=== PATIENT | male | born 1955 | race Caucasian/White ===

== ENCOUNTER → 2016-12-05 | Outpatient (CLI) | payer OTHER ==
[~2016-12-05] VITALS: Ht 182.9 cm; Wt 65.8 kg
[~2016-12-05] MED LIST: LIDOCAINE 2% INJ 100 MG/5 ML SDV (FOR ANES.) As Ordered ONE; NS 1,000 ML IV ONE; PROPOFOL 200 MG/20 ML VIAL As Ordered ONE
--- NOTE | 2016-12-05 12:32 | ROOR ---
Patient Name: Reji Cesar Procedure Date: 12/05/2016 12:08 PM Date of : 1955 Age: 61 Room: [facility] Gender: Male Note Status: Finalized Procedure: Colonoscopy Indications: Screening for colorectal malignant neoplasm Providers: Adilson RUSSO MD Referring MD: Brian ACOSTA MD Requesting Provider: Medicines: Monitored Anesthesia Care Complications: No immediate complications. Procedure: Pre-Anesthesia Assessment: - The heart rate, respiratory rate, oxygen saturations, blood pressure, adequacy of pulmonary ventilation, and response to care were monitored throughout the procedure. The Colonoscope was introduced through the anus and advanced to 3 cm into the ileum. The colonoscopy was performed without difficulty. The patient tolerated the procedure well. The quality of the bowel preparation was good. Findings: The perianal and digital rectal examinations were normal. A 6 mm polyp was found in the distal sigmoid colon. The polyp was sessile. The polyp was removed with a cold snare. Resection and retrieval were complete. Multiple medium-mouthed diverticula were found in the sigmoid colon. There was evidence of diverticular spasm. Internal hemorrhoids were found during retroflexion. The hemorrhoids were large. The exam was otherwise without abnormality on direct and retroflexion views. Impression: - One 6 mm polyp in the distal sigmoid colon, removed with a cold snare. Resected and retrieved. - Diverticulosis in the sigmoid colon. There was evidence of diverticular spasm. - Large Internal hemorrhoids. - The Colon examination was otherwise normal on direct and retroflexion views. Recommendation: - Repeat colonoscopy in 3 years for surveillance. Adilson Russo MD Adilson RUSSO MD 12/05/2016 12:32:37 PM This report has been signed electronically. Number of Addenda: 0 Note Initiated On: 12/05/2016 12:08 PM Estimated Blood Loss: Estimated blood loss: none.
[2016-12-05 12:55] VITALS: BP 137/71
== END ==
LOC: M OPP 11:16
PROVIDERS: ATTEND Internal Medicine Gastroenterology
DX: Z12.11 Encounter for screening for malignant neoplasm of colon (principal); D12.5 Benign neoplasm of sigmoid colon; K64.8 Other hemorrhoids; K57.30 Diverticulosis of large intestine without perforation or abscess without bleeding; Z79.899 Other long term (current) drug therapy

== ENCOUNTER → 2017-05-29 | Outpatient (REF) | payer OTHER, MEDICAID ==
[2017-05-29 13:06] LABS: BASO # 0.1 10^3/uL (0.0-0.2); BASO % 1.4 % (0.0-1.0); EOS # 0.4 10^3/uL (0.0-0.50); EOS % 5.7 % (0.0-3.0); IMMATURE GRANULOCYTE % 0.3 % (0-0); LYMPH # 1.3 10^3/uL (1.5-4.5); LYMPH % 19.9 % (24.0-44.0); MEAN CORPUSCULAR HEMOGLOBIN 31.4 pg (27.0-33.0); MEAN CORPUSCULAR HGB CONC 34.2 g/dl (32.0-36.5); MEAN CORPUSCULAR VOLUME 91.9 fl (80.0-96.0); MONO # 0.9 10^3/uL (0.0-0.8); MONO % 13.1 % (0.0-5.0); NEUTROPHILS % 59.6 % (36.0-66.0); PLATELET COUNT, AUTOMATED 116 10^3/uL (150-450); RED CELL DISTRIBUTION WIDTH 13.5 % (11.5-14.5); WHITE BLOOD COUNT 6.6 10^3/uL (4.0-10.0)
[2017-05-29 13:23] LABS: ALBUMIN 3.4 GM/DL (3.2-5.2); ALBUMIN/GLOBULIN RATIO 0.77 (1.00-1.93); ALKALINE PHOSPHATASE 144 U/L (45-117); ALT/SGPT 24 U/L (12-78); ANION GAP 8 MEQ/L (8-16); AST/SGOT 51 U/L (7-37); BILIRUBIN,TOTAL 0.9 MG/DL (0.2-1.0); BLOOD UREA NITROGEN 8 MG/DL (7-18); CARBON DIOXIDE LEVEL 27 MEQ/L (21-32); CHLORIDE LEVEL 104 MEQ/L (98-107); CHOLESTEROL LEVEL 253 MG/DL (<200); CREATININE FOR GFR 0.85 MG/DL (0.70-1.30); GLOMERULAR FILTRATION RATE > 60.0 (>49); GLUCOSE, FASTING 93 MG/DL (80-110); SODIUM LEVEL 139 MEQ/L (136-145); TOTAL PROTEIN 7.8 GM/DL (6.4-8.2); TRIGLYCERIDES LEVEL 121 MG/DL (<150)
== END ==
LOC: M LAB REF 12:39
PROVIDERS: ATTEND Family Medicine Addiction Medicine
DX: E78.5 Hyperlipidemia, unspecified (principal)

== ENCOUNTER → 2017-06-14 | Outpatient (REF) | payer OTHER, MEDICAID ==
[2017-06-14 18:15] LABS: BASO # 0.1 10^3/uL (0.0-0.2); BASO % 1.1 % (0.0-1.0); EOS # 0.2 10^3/uL (0.0-0.50); IMMATURE GRANULOCYTE % 0.3 % (0-0); LYMPH # 1.4 10^3/uL (1.5-4.5); LYMPH % 14.5 % (24.0-44.0); MEAN CORPUSCULAR HEMOGLOBIN 31.7 pg (27.0-33.0); MEAN CORPUSCULAR HGB CONC 34.4 g/dl (32.0-36.5); MEAN CORPUSCULAR VOLUME 91.9 fl (80.0-96.0); MONO # 1.3 10^3/uL (0.0-0.8); MONO % 13.8 % (0.0-5.0); NEUTROPHILS # 6.5 10^3/uL (1.8-7.7); NEUTROPHILS % 68.3 % (36.0-66.0); PLATELET COUNT, AUTOMATED 145 10^3/uL (150-450); RED CELL DISTRIBUTION WIDTH 13.6 % (11.5-14.5); WHITE BLOOD COUNT 9.5 10^3/uL (4.0-10.0)
== END ==
LOC: M LAB REF 17:27
PROVIDERS: ATTEND Family Medicine Addiction Medicine
DX: D69.49 Other primary thrombocytopenia (principal)

== ENCOUNTER 2018-02-28 12:40 | Outpatient (RCR) | payer OTHER, MEDICAID | END 2018-03-08 | LOC: M PT 12:40 | DX: M54.42 Lumbago with sciatica, left side (principal); Z51.89 Encounter for other specified aftercare | CPT/HCPCS: 97140 ==

== ENCOUNTER 2018-03-13 08:21 | Outpatient (RCR) | payer OTHER | END 2018-04-07 | LOC: M PT 08:21 | DX: M54.42 Lumbago with sciatica, left side (principal) | CPT/HCPCS: 97010 ==

== ENCOUNTER → 2018-12-27 | Outpatient (CLI) | payer OTHER ==
--- NOTE | 2018-12-27 09:58 | REP ---
Chest x-ray: Two views. History: Cough. Comparison study: January 26, 2015. Findings: The lungs are symmetrically aerated and free of infiltrate. Pleural angles are sharp. Heart size is normal. There is mild stable wedging one of the mid-thoracic vertebrae unchanged. The aorta is somewhat tortuous. Very vasculature is not increased. Impression: No active disease. Electronically Signed by Dhruv Odonnell MD 12/27/2018 09:49 A
== END ==
LOC: M RAD 08:36
PROVIDERS: ATTEND Family Medicine Addiction Medicine
DX: R05 Cough (principal)

== ENCOUNTER → 2019-03-19 | Outpatient (REF) | payer OTHER ==
[2019-03-19 13:14] LABS: BASO # 0.1 10^3/uL (0.0-0.2); BASO % 1.6 % (0.0-1.0); EOS # 0.1 10^3/uL (0.0-0.5); EOS % 2.2 % (0.0-3.0); HEMATOCRIT 43.8 % (42.0-52.0); HEMOGLOBIN 14.9 g/dl (13.5-17.5); LYMPH % 15.2 % (24.0-44.0); MEAN CORPUSCULAR HEMOGLOBIN 33.3 pg (27.0-33.0); MEAN CORPUSCULAR VOLUME 97.8 fl (80.0-96.0); MONO # 1.1 10^3/uL (0.0-0.8); MONO % 17.2 % (0.0-5.0); NEUTROPHILS # 4.1 10^3/uL (1.5-8.5); NEUTROPHILS % 63.3 % (36.0-66.0); PLATELET COUNT, AUTOMATED 172 10^3/uL (150-450); RED BLOOD COUNT 4.48 10^6/uL (4.30-6.10); WHITE BLOOD COUNT 6.4 10^3/uL (4.0-10.0)
[2019-03-19 13:30] LABS: ALBUMIN 2.8 GM/DL (3.2-5.2); ALT/SGPT 44 U/L (12-78); BILIRUBIN,TOTAL 0.8 MG/DL (0.2-1.0); BLOOD UREA NITROGEN 7 MG/DL (7-18); CALCIUM LEVEL 8.9 MG/DL (8.8-10.2); CARBON DIOXIDE LEVEL 26 MEQ/L (21-32); CHLORIDE LEVEL 101 MEQ/L (98-107); CHOLESTEROL LEVEL 236 MG/DL (<200); CHOLESTEROL RISK RATIO 4.538 (<5); CREATININE FOR GFR 0.84 MG/DL (0.70-1.30); FREE T4 1.26 NG/DL (0.76-1.46); GLOMERULAR FILTRATION RATE > 60.0 (>49); GLUCOSE, FASTING 143 MG/DL (70-100); HDL CHOLESTEROL 52 MG/DL (>40); LDL CHOLESTEROL 159 MG/DL (<100); NON-HDL-C 184 MG/DL; POTASSIUM SERUM 3.7 MEQ/L (3.5-5.1); SODIUM LEVEL 140 MEQ/L (136-145); TOTAL 25(OH) VITAMIN D 16.5 NG/ML (30.0-100.0); TOTAL PROTEIN 7.6 GM/DL (6.4-8.2); TRIGLYCERIDES LEVEL 125 MG/DL (<150)
[2019-03-19 13:35] LABS: HEMOGLOBIN A1c 5.1 %
== END ==
LOC: M LAB REF 12:33
PROVIDERS: ATTEND Nurse Practitioner Family
DX: Z00.00 Encounter for general adult medical examination without abnormal findings (principal)

== ENCOUNTER → 2019-04-03 | Outpatient (CLI) | payer OTHER ==
--- NOTE | 2019-04-03 10:06 | REP ---
Abdominal right upper quadrant ultrasound for abnormal liver function tests. There is no cholelithiasis, gallbladder wall thickening or pericholecystic fluid. There is no intrahepatic or extrahepatic biliary duct dilatation. The common biliary duct measures 3.6 ml in diameter. The hepatic parenchyma is diffusely heterogeneous compatible with diffuse hepatocellular disease. There are no focal hepatic masses. Subjectively the left lobe appears enlarged. There is a hypoechoic subcapsular mass anteriorly in the right lobe of the liver measuring 3.5 x 2.0 cm. I recommend hepatic MRI for further evaluation of this finding. The the visualized areas of the pancreas are unremarkable. The right kidney measures 10.0 x 5.5 x 6.5 cm and is normal size. There is no right renal calculus, hydronephrosis or solid or cystic mass. The abdominal aorta demonstrates no aneurysm. There is no right upper quadrant ascites. Impression: Diffusely heterogeneous hepatic parenchyma compatible with diffuse hepatocellular disease. There is a focal hypoechoic mass anteriorly in the hepatic right lobe as described. Recommend MRI for follow up of this hepatic mass. Electronically Signed by Danny Verma MD 04/03/2019 09:56 A
== END ==
LOC: M RAD 08:03
PROVIDERS: ATTEND Nurse Practitioner Family
DX: R74.8 Abnormal levels of other serum enzymes (principal); Z65.8 Other specified problems related to psychosocial circumstances; K76.89 Other specified diseases of liver

== ENCOUNTER 2020-04-22 01:57 | Emergency (ER) | payer OTHER ==
[~2020-04-22] VITALS: Ht 185.4 cm; Wt 68.2 kg
[2020-04-22] MEDS ORDERED: COLA100C5 PO (02:18)
[2020-04-22 03:41] LABS: BASO # 0.1 10^3/uL (0.0-0.2); BASO % 0.8 % (0.0-1.0); EOS # 0.2 10^3/uL (0.0-0.5); EOS % 1.7 % (0.0-3.0); HEMATOCRIT 41.2 % (42.0-52.0); HEMOGLOBIN 13.5 g/dl (13.5-17.5); LYMPH # 1.4 10^3/uL (1.5-5.0); LYMPH % 11.9 % (24.0-44.0); MEAN CORPUSCULAR HEMOGLOBIN 33.2 pg (27.0-33.0); MEAN CORPUSCULAR HGB CONC 32.8 g/dl (32.0-36.5); MEAN CORPUSCULAR VOLUME 101.2 fl (80.0-96.0); MONO # 1.5 10^3/uL (0.0-0.8); MONO % 13.1 % (0.0-5.0); NEUTROPHILS # 8.2 10^3/uL (1.5-8.5); NEUTROPHILS % 71.9 % (36.0-66.0); PLATELET COUNT, AUTOMATED 204 10^3/uL (150-450); RED BLOOD COUNT 4.07 10^6/uL (4.30-6.10); WHITE BLOOD COUNT 11.4 10^3/uL (4.0-10.0)
[2020-04-22 04:07] LABS: ALBUMIN 1.9 GM/DL (3.2-5.2); ALT/SGPT 34 U/L (12-78); BILIRUBIN,DIRECT 2.3 MG/DL (0.0-0.2); BILIRUBIN,TOTAL 3.4 MG/DL (0.2-1.0); BLOOD UREA NITROGEN 9 MG/DL (7-18); CALCIUM LEVEL 8.4 MG/DL (8.8-10.2); CARBON DIOXIDE LEVEL 27 MEQ/L (21-32); CHLORIDE LEVEL 101 MEQ/L (98-107); CK-MB VALUE MASS 1.9 NG/ML (<3.6); CPK CREATINE PHOSPHOKINASE 75 U/L (39-308); CREATININE FOR GFR 1.03 MG/DL (0.70-1.30); GLOMERULAR FILTRATION RATE > 60.0 (>49); GLUCOSE, FASTING 96 MG/DL (70-100); LIPASE 141 U/L (73-393); MB/CK RELATIVE INDEX 2.53 (< OR =4); NT-PRO BNP 140 PG/ML (<125); POTASSIUM SERUM 3.9 MEQ/L (3.5-5.1); SODIUM LEVEL 135 MEQ/L (136-145); TOTAL PROTEIN 7.6 GM/DL (6.4-8.2); TROPONIN I < 0.02 NG/ML (< 0.10)
[2020-04-22 04:38] LABS: ETHYL ALCOHOL (ETHANOL) < 0.003 % (0.000-0.010)
[2020-04-22 04:47] LABS: INR 1.48; PROTHROMBIN TIME 18.3 SECONDS (12.5-14.3)
[2020-04-22 04:48] LABS: PARTIAL THROMBOPLASTIN TIME 39.9 SECONDS (24.2-38.5)
[2020-04-22] MEDS ORDERED: ISOVUE-370 76% 100ML VIAL As Ordered ONE (05:08)
[2020-04-22] MEDS ORDERED: ONDANSETRON 4MG/2ML VIAL IV ONE (05:15)
--- NOTE | 2020-04-22 05:56 | REPVR ---
PROCEDURE INFORMATION: Exam: CT Angiography Chest With Contrast Exam date and time: 04/22/2020 5:03 AM Age: 64 years old Clinical indication: Shortness of breath; Additional info: SOB, ascites TECHNIQUE: Imaging protocol: Computed tomographic angiography of the chest with intravenous contrast. 3D rendering (Not supervised by radiologist): MIP and/or 3D reconstructed images were created by the technologist. Radiation optimization: All CT scans at this facility use at least one of these dose optimization techniques: automated exposure control; mA and/or kV adjustment per patient size (includes targeted exams where dose is matched to clinical indication); or iterative reconstruction. Contrast material: ISO; Contrast volume: 100 ml; Contrast route: INTRAVENOUS (IV); COMPARISON: HI Chest, 2 view PA, Lat 12/27/2018 8:53 AM FINDINGS: Pulmonary arteries: Normal. No pulmonary emboli. Aorta: Atherosclerotic disease of the thoracic aorta. Lungs: Centrilobular and paraseptal emphysema. Linear atelectasis or scarring in the right middle lobe biapical scarring. Pleural space: Moderate right and small left pleural effusions with adjacent compressive atelectasis. Heart: Atherosclerotic disease of coronary arteries. Lymph nodes: Unremarkable. No enlarged lymph nodes. Bones/joints: Osteopenia. Multilevel degenerative disease of the thoracic spine. Soft tissues: Unremarkable. IMPRESSION: No acute pulmonary embolic disease. Moderate right and small left pleural effusions with adjacent compressive atelectasis. Electronically signed by: Paul Ledesma On 04/22/2020 05:55:36 AM
--- NOTE | 2020-04-22 06:02 | REPVR ---
PROCEDURE INFORMATION: Exam: CT Abdomen And Pelvis With Contrast Exam date and time: 04/22/2020 5:03 AM Age: 64 years old Clinical indication: Bloating; Additional info: SOB, ascites TECHNIQUE: Imaging protocol: Computed tomography of the abdomen and pelvis with intravenous contrast. Radiation optimization: All CT scans at this facility use at least one of these dose optimization techniques: automated exposure control; mA and/or kV adjustment per patient size (includes targeted exams where dose is matched to clinical indication); or iterative reconstruction. Contrast material: ISO; Contrast volume: 100 ml; Contrast route: INTRAVENOUS (IV); COMPARISON: Abdomen, limited US 04/03/2019 8:45 AM FINDINGS: Liver: Cirrhosis and portal venous hypertension with extensive periesophageal varices. Ill-defined faintly hyperattenuating left hepatic lobe lesion which in the presence of cirrhosis may reflect hepatocellular carcinoma. Gallbladder and bile ducts: Normal. No calcified stones. No ductal dilation. Pancreas: Normal. No ductal dilation. Spleen: Normal. No splenomegaly. Adrenals: Normal. No mass. Kidneys and ureters: Normal. No hydronephrosis. Stomach and bowel: Diverticulosis of colon. No evidence of acute diverticulitis. Appendix: No evidence of appendicitis. Intraperitoneal space: Massive ascites. Vasculature: Atherosclerotic disease of the abdominal aorta. Severe atherosclerotic disease of the abdominal aorta. Occluded left common and external iliac arteries. Appearance of a reconstituted proximal left deep femoral artery probably from circumflex artery. Lymph nodes: Unremarkable. No enlarged lymph nodes. Urinary bladder: Unremarkable as visualized. Reproductive: Enlarged prostate. Bones/joints: Severe multilevel degenerative disease and facet hypertrophy of the lumbar spine. Loss of normal lumbar lordosis. Multilevel spinal canal and neural foraminal stenosis. Soft tissues: Indeterminate subcutaneous soft tissue mass measuring 1.8 x 1.3 cm in the left groin. IMPRESSION: 1. Cirrhosis and portal venous hypertension with extensive periesophageal varices. Ill-defined faintly hyperattenuating left hepatic lobe lesion which in the presence of cirrhosis may reflect hepatocellular carcinoma. Clinical correlation is advised. Dedicated [address] or MRI can be used for further characterization if clinically warranted. 2. Massive ascites. 3. Indeterminate subcutaneous soft tissue mass measuring 1.8 x 1.3 cm in the left groin. 4. Severe atherosclerotic disease of the abdominal aorta. Occluded left common and external iliac arteries. Appearance of a reconstituted proximal left deep femoral artery probably from circumflex artery. Electronically signed by: Paul Ledesma On 04/22/2020 06:01:51 AM
[2020-04-22 09:28] VITALS: BP 103/74
== END 2020-04-22 09:28 | disposition short-term general hospital (02) ==
LOC: M ED 01:57
DX: R06.00 Dyspnea, unspecified (principal); K74.60 Unspecified cirrhosis of liver; R16.0 Hepatomegaly, not elsewhere classified; J90 Pleural effusion, not elsewhere classified; R18.8 Other ascites; R00.0 Tachycardia, unspecified; F17.210 Nicotine dependence, cigarettes, uncomplicated; Z79.899 Other long term (current) drug therapy
CPT/HCPCS: 71275; 74177; 80048; 80076; 82140; 82550; 82553; 83605; 83690; 83880; 85025; 85610; 85730; 93041; 96374; 99285; G0480; J2405; Q9967

== ENCOUNTER → 2020-06-01 | Outpatient (REF) | payer OTHER ==
[~2020-06-01] MED LIST changes: +COLA100C5 PO; -LIDOCAINE 2% INJ 100 MG/5 ML SDV (FOR ANES.) As Ordered ONE; -NS 1,000 ML IV ONE; -PROPOFOL 200 MG/20 ML VIAL As Ordered ONE
[2020-06-01 16:53] LABS: BASO # 0.1 10^3/uL (0.0-0.2); EOS # 0.3 10^3/uL (0.0-0.5); HEMOGLOBIN 13.1 g/dl (13.5-17.5); LYMPH # 1.1 10^3/uL (1.5-5.0); LYMPH % 13.8 % (24.0-44.0); MEAN CORPUSCULAR HEMOGLOBIN 32.2 pg (27.0-33.0); MEAN CORPUSCULAR HGB CONC 34.5 g/dl (32.0-36.5); MEAN CORPUSCULAR VOLUME 93.4 fl (80.0-96.0); MONO # 1.2 10^3/uL (0.0-0.8); MONO % 15.3 % (0.0-5.0); NEUTROPHILS # 5.2 10^3/uL (1.5-8.5); PLATELET COUNT, AUTOMATED 201 10^3/uL (150-450); RED BLOOD COUNT 4.07 10^6/uL (4.30-6.10); WHITE BLOOD COUNT 8.1 10^3/uL (4.0-10.0)
[2020-06-01 17:09] LABS: ALBUMIN 2.3 GM/DL (3.2-5.2); ALT/SGPT 22 U/L (12-78); BILIRUBIN,TOTAL 2.2 MG/DL (0.2-1.0); BLOOD UREA NITROGEN 7 MG/DL (7-18); CARBON DIOXIDE LEVEL 29 MEQ/L (21-32); CHLORIDE LEVEL 100 MEQ/L (98-107); CHOLESTEROL LEVEL 236 MG/DL (<200); CHOLESTEROL RISK RATIO 7.375 (<5); CREATININE FOR GFR 0.88 MG/DL (0.70-1.30); GLOMERULAR FILTRATION RATE > 60.0 (>49); GLUCOSE, FASTING 108 MG/DL (70-100); HDL CHOLESTEROL 32 MG/DL (>40); LDL CHOLESTEROL 179 MG/DL (<100); NON-HDL-C 204 MG/DL; POTASSIUM SERUM 4.3 MEQ/L (3.5-5.1); SODIUM LEVEL 135 MEQ/L (136-145); TOTAL PROTEIN 8.1 GM/DL (6.4-8.2); TRIGLYCERIDES LEVEL 125 MG/DL (<150)
== END ==
LOC: M LAB REF 16:22
PROVIDERS: ATTEND Physician Assistant
DX: R16.0 Hepatomegaly, not elsewhere classified (principal); E78.5 Hyperlipidemia, unspecified

== ENCOUNTER → 2020-08-03 | Outpatient (REF) | payer OTHER ==
[2020-08-03 13:33] LABS: BASO # 0.1 10^3/uL (0.0-0.2); BASO % 1.4 % (0.0-1.0); EOS # 0.5 10^3/uL (0.0-0.5); EOS % 8.6 % (0.0-3.0); HEMOGLOBIN 13.2 g/dl (13.5-17.5); LYMPH # 1.3 10^3/uL (1.5-5.0); LYMPH % 21.8 % (24.0-44.0); MEAN CORPUSCULAR HEMOGLOBIN 30.7 pg (27.0-33.0); MONO # 0.9 10^3/uL (0.0-0.8); MONO % 15.4 % (0.0-5.0); NEUTROPHILS % 52.5 % (36.0-66.0); PLATELET COUNT, AUTOMATED 143 10^3/uL (150-450); WHITE BLOOD COUNT 5.8 10^3/uL (4.0-10.0)
[2020-08-03 13:55] LABS: ALBUMIN 2.6 GM/DL (3.2-5.2); ALT/SGPT 21 U/L (12-78); BILIRUBIN,TOTAL 1.5 MG/DL (0.2-1.0); BLOOD UREA NITROGEN 7 MG/DL (7-18); CALCIUM LEVEL 9.9 MG/DL (8.8-10.2); CARBON DIOXIDE LEVEL 28 MEQ/L (21-32); CHLORIDE LEVEL 105 MEQ/L (98-107); CREATININE FOR GFR 0.86 MG/DL (0.70-1.30); FERRITIN 328 NG/ML (26-388); GLOMERULAR FILTRATION RATE > 60.0 (>49); GLUCOSE, FASTING 101 MG/DL (70-100); IRON (FE) 101 UG/DL (65-175); PERCENT SATURATION 55.2 % (19.7-50.0); POTASSIUM SERUM 3.8 MEQ/L (3.5-5.1); SODIUM LEVEL 140 MEQ/L (136-145); TOTAL IRON BINDING CAPACITY 183 UG/DL (250-450); TOTAL PROTEIN 7.8 GM/DL (6.4-8.2)
[2020-08-03 15:01] LABS: VITAMIN B12 LEVEL 1253 PG/ML
== END ==
LOC: M LAB REF 12:32
PROVIDERS: ATTEND Physician Assistant
DX: D64.9 Anemia, unspecified (principal); E78.6 Lipoprotein deficiency

== ENCOUNTER → 2020-09-20 | Outpatient (REF) | payer MEDICARE, OTHER ==
[2020-09-20 17:30] LABS: ALBUMIN 2.4 GM/DL (3.2-5.2); ALT/SGPT 21 U/L (12-78); BLOOD UREA NITROGEN 10 MG/DL (7-18); CALCIUM LEVEL 9.3 MG/DL (8.8-10.2); CARBON DIOXIDE LEVEL 26 MEQ/L (21-32); CHLORIDE LEVEL 104 MEQ/L (98-107); CREATININE FOR GFR 1.01 MG/DL (0.70-1.30); GLOMERULAR FILTRATION RATE > 60.0 (>49); GLUCOSE, FASTING 101 MG/DL (70-100); POTASSIUM SERUM 3.7 MEQ/L (3.5-5.1); SODIUM LEVEL 137 MEQ/L (136-145); TOTAL PROTEIN 7.2 GM/DL (6.4-8.2)
== END ==
LOC: M LAB REF 16:29
PROVIDERS: ATTEND Physician Assistant
DX: R74.8 Abnormal levels of other serum enzymes (principal)
CPT/HCPCS: 80053; 84080; G0103

== ENCOUNTER → 2020-10-05 | Outpatient (POV) | payer MEDICARE, OTHER ==
--- NOTE | 2020-10-08 12:45 | IRCOV ---
[facility] IR Consult Office Visit IR Consult Office Visit DATE: Oct 05, 2020 Patient agreed to this telephone consultation. I spent 30 minutes reviewing patient records, imaging and talking to the patient. REASON FOR CONSULTATION/CHIEF COMPLAINT: Left lower extremity ulcers. HISTORY OF PRESENT ILLNESS: 65 year old smoker with end stage liver disease, describes left lower extremity pain and recurrent ulcers for 2 years. He is currently seeing wound care for a small ulcer on his left malleolus. He describes rest pain in the left lower extremity with leg elevation. He is not very ambulatory. He also report erectile dysfunction. He denies prior cold leg, vascular intervention or bypass. He is not on aspirin or Plavix. Patient denies chest pain, shortness of breath, orthopnea or PND. No prior LA, coronary stents or stroke. He has end stage liver disease and reports he had a paracentesis in May 2020. He denies hematemesis or melena. He last had a colonoscopy in 2016 which showed internal hemorrhoids but there is no EGD in our system. He is still actively drinking but trying to cut down. ALLERGIES: Please see below. HOME MEDICATIONS: Please see below. PAST MEDICAL HISTORY: HTN Vitamin D deficiency hyperlipidemia anemia gastritis PAST SURGICAL HISTORY: vasectomy FAMILY HISTORY: non contributory. SOCIAL HISTORY: current smoker 10 cigarettes /day, alcohol and marijuana. REVIEW OF SYSTEMS: Otherwise negative. PHYSICAL EXAMINATION: No video on patient side. LABORATORY DATA: 08/03/20 Hgb 13.2 HCT 40 MCV 93 WBC 5.8 PLT 143 09/20/20 Na 137 K 3.7 BUN 10 Cr 1.01 GFR >60 T bili 3 direct 2.3 AST 79 ALT 21 ALP 203 04/22/20 INR 1.48 MELD 17 Imaging: I personally reviewed the CT abdomen pelvis with IV contrast performed April 2020. Cirrhotic liver with recanalized periumbilical vein, large volume ascites and hepatic hydrothorax. Complete occlusion of the left common iliac, eternal iliac, internal iliac and common femoral artery. No external mass compr ession on the left iliac artery. Patent right common and external iliac artery. ASSESSMENT/PLAN: 65 year old male smoker with ESLD presents with left lower extremity rest pain, recurrent ulceration and erectile dysfunction. This is associated with complete occlusion of inflow to the left lower extremity. I agree he would benefit from angiogram and attempt at endovascular revascul arization. We discussed the risks and benefits of the procedure and patient would like to proceed. We have schedule the patient for the procedure. ESLD with ascites and hepatic hydrothorax not requiring regular paracentesis. Patient needs annual EGD and surveillance for varices as well as improved diuretic management. Given ongoing drinking, transplant evaluation is likely to be low yield. However, patient will be referred to GI for EGD and medical management of ESLD. Currently, without ascites refractory to optimal medical therapy or variceal bleeding refractory to endoscopic therapy, he does not have indication for TIPS. Thank you for this referral. cc Dr. Mendez Allergies Coded Allergies: No Known Allergies (Unverified , 11/28/16) Home Medications Scheduled Docusate Sodium (Colace), 1 CAP PO BID, (Reported) CHERISE DREW MD Oct 08, 2020 12:45
== END ==
LOC: M IRPOV 14:50
PROVIDERS: ATTEND Radiology Diagnostic Radiology
DX: L97.329 Non-pressure chronic ulcer of left ankle with unspecified severity (principal); M79.605 Pain in left leg; F17.210 Nicotine dependence, cigarettes, uncomplicated; K72.90 Hepatic failure, unspecified without coma; I10 Essential (primary) hypertension

== ENCOUNTER → 2020-10-12 | Outpatient (CLI) | payer MEDICARE, OTHER ==
--- NOTE | 2020-10-12 11:09 | REP ---
INDICATION: PAIN IN LEFT FOOT, US 1ST THEN XR COMPARISON: None. TECHNIQUE: AP, lateral, bilateral oblique views. FINDINGS: No acute fracture or dislocation. Skeletal structures and joint spaces are intact and normal. Ankle mortise appears stable. No subcutaneous emphysema or radiodense foreign body. IMPRESSION: Normal age-appropriate left ankle radiograph series. <Electronically signed by Jersey Kaufman > 10/12/20 2157
--- NOTE | 2020-10-12 11:10 | REP ---
INDICATION: FOOT PAIN COMPARISON: None. TECHNIQUE: AP, lateral, bilateral oblique views left foot. FINDINGS: Age-related osteopenia and generalized age-related degenerative changes are suggested. No obvious acute fracture or dislocation. No subcutaneous emphysema or foreign body. No obvious significant focal soft tissue swelling. IMPRESSION: Age-related osteopenia and generalized age-related degenerative changes. No acute fracture or dislocation. <Electronically signed by Jersey Kaufman > 10/12/20 1100
--- NOTE | 2020-10-12 11:11 | REP ---
INDICATION: ACUTE BACK PAIN, US 1ST THEN XR COMPARISON: None. TECHNIQUE: AP, lateral, coned-down views of the lumbar spine. FINDINGS: Alignment and lordosis maintained. Moderate multilevel degenerative changes include endplate sclerosis, disc space narrowing, marginal spurring and facet hypertrophy. No obvious acute fracture/compression injury or subluxation. Extensive atherosclerotic changes to the visualized aorta noted. IMPRESSION: 1. No acute fracture / compression injury or subluxation. 2. Moderate multilevel degenerative changes. <Electronically signed by Jersey Kaufman > 10/12/20 1104
--- NOTE | 2020-10-12 11:21 | REP ---
INDICATION: LOCALIZED EDEMA, PAIN/SWELLING, US 1ST THEN XR. COMPARISON: None TECHNIQUE: Real time castano scale and color Doppler evaluation of the left lower extremity arterial vasculature using linear high frequency transducer. FINDINGS: Left lower extremity demonstrates significant amounts of calcified atheromatous plaquing. There is occlusion extending from the left common iliac artery through the left popliteal artery just above the knee. There is occlusion of the left profundus artery with subsequent collateral revascularization demonstrating reversed monophasic flow. The more distal lower extremity from the popliteal artery to the visible ankle demonstrates tardus parvus wave pattern and appears to be revascularized through genicular arteries in the posterior knee and other collateral vessels as well PSV(cm/sec) Common femoral artery: Occluded Profunda femoris artery: Occluded Proximal superficial femoral artery: Occluded Mid superficial femoral artery: Occluded Distal superficial femoral artery: Occluded Popliteal artery: Revascularized at 24.4 cm/s and monophasic Proximal NANY: 17.4 cm/s and monophasic Tibioperoneal trunk: 16.9 cm/s and monophasic Proximal FLOOR STEWARD/STEWARDESS: 25.2 cm/s and monophasic Distal FLOOR STEWARD/STEWARDESS: 23.6 cm/s and monophasic Distal NANY: 19.2 cm/s and monophasic IMPRESSION: Extensive disease including occlusion from the visualized common iliac artery to the level of the popliteal artery including proximal portion of the profundus. <Electronically signed by Jersey Kaufman > 10/12/20 [id number]
--- NOTE | 2020-10-12 11:44 | REP ---
INDICATION: LOCALIZED EDEMA. COMPARISON: None. TECHNIQUE: Duplex ultrasound of the left lower extremity deep veins. FINDINGS: The deep veins demonstrate normal compression, normal Doppler color flow and normal Doppler waveforms with respiration augmentation at multiple levels from the popliteal vein to the common femoral vein. IMPRESSION: There is no deep vein thrombus in the left lower extremity. <Electronically signed by Danny Verma > 10/12/20 2919
== END ==
LOC: M RAD 09:25
PROVIDERS: ATTEND Physician Assistant
DX: R60.0 Localized edema (principal); M79.605 Pain in left leg

== ENCOUNTER → 2020-10-14 | Outpatient (CLI) | payer MEDICARE, OTHER ==
[~2020-10-14] MED LIST changes: +ISOVUE-300 61% 50ML VIAL As Ordered ONE; +LIDOCAINE 1% MDV 20ML VIAL As Ordered ONE; +MIDAZOLAM INJ 2MG/2ML VIAL (J2250 PER 1MG) As Ordered ONE; +diphenhydrAMINE 50MG/ML VIAL (J1200) As Ordered ONE; +fentaNYL 100 MCG/2 ML INJECTION (J3010) As Ordered ONE
--- NOTE | 2020-10-14 08:23 | IRHP ---
[facility] IR Pre-Procedure H & P General Date of Service: Oct 14, 2020 Procedure: Same Day Surgery Interval History and Physical I have seen the patient and reviewed last H & P performed within 30 days. There is no significant interval change. History of Present Illness Chief Complaint The patient is a 65-year-old male admitted with a reason for visit of Iliac Artery Occlusion. PRE-PROCEDURE DIAGNOSIS: PAD HEART: normal rate. LUNGS: normal breathing at rest. ASA Classification ASA Classification: III-Severe systemic dis. Mallampati Score: II NPO: Yes Problems with prior sedation: No Obstructive Sleep Apnea: No Plan moderate sedation Allergies Coded Allergies: No Known Allergies (Unverified , 11/28/16) Home Medications Scheduled Docusate Sodium (Colace), 1 CAP PO BID, (Reported) VS, I&O, 24H, Fishbone Vital Signs/I&O Vital Signs Date Time Temp Pulse Resp B/P (MAP) Pulse Ox O2 Delivery O2 Flow Rate FiO2 10/14/20 07:50 98.7 77 20 99 Room Air Laboratory Data CBC/BMP CHERISE DREW MD Oct 14, 2020 08:23
[2020-10-14 08:30] LABS: HEMATOCRIT 40.9 % (42.0-52.0); HEMOGLOBIN 13.8 g/dl (13.5-17.5); MEAN CORPUSCULAR HEMOGLOBIN 30.5 pg (27.0-33.0); MEAN CORPUSCULAR HGB CONC 33.7 g/dl (32.0-36.5); MEAN CORPUSCULAR VOLUME 90.5 fl (80.0-96.0); PLATELET COUNT, AUTOMATED 120 10^3/uL (150-450); RED BLOOD COUNT 4.52 10^6/uL (4.30-6.10); WHITE BLOOD COUNT 5.7 10^3/uL (4.0-10.0)
[2020-10-14 13:30] VITALS: BP 134/67
--- NOTE | 2020-10-15 11:06 | IRPON ---
IR Postoperative Note Date Of Procedure: Oct 14, 2020 Time Of Procedure: 16:00 IR Postoperative Note IR Left leg angiogram IR Left Below-knee runoff arteriogram. IR Pelvic arteriogram. IR Moderate sedation. Clinical Information:Left lower extremity rest pain and nonhealing ulcers. Physician: Dr. Zepeda. Procedure: The patient was advised of the benefits, risks, and alternatives of the procedure and informed consent was obtained. A time out was performed with verification of the patient's name, MRN, site of procedure, and type of procedure to be performed. The patient was positioned in the supine position on the angiographic table. The site was prepped and draped in the usual sterile fashion. Moderate sedation was performed by the physician including the presence of an independent trained RN, who assisted in monitoring the patient's level of consciousness and physiological status. Following the administration of fentanyl and Versed, the physician spent 90 minutes of continuous [id number] time with the patient. A drawing frame tender radiograph reveals calcified pelvic vasculature. Lidocaine was used for local anesthesia. The right common femoral artery was accessed with a microintroducer set. A short 0.018" Paradise wire was inserted and the needle was exchanged for a 4 Fr microintroducer sheath. The guidewire and dilator were removed and a 0.035" Bentson wire was advanced under fluoroscopy guidance, into the abdominal aorta. A 6 Fr sheath was placed over the wire. A flush catheter was then advanced over the wire, under fluoroscopy guidance and used to catheterize the infrarenal abdominal aorta. A pelvic arteriogram was performed. This demonstrates complete occlusion of the left common iliac external iliac, internal iliac and common femoral artery. There is reconstitution of the profunda femoris via collaterals. Angiography further down the left leg was performed. This demonstrates complete occlusion of the superficial femoral artery, proximal mid and distal. Angiography further down the left leg demonstrates reconstitution at the mid popliteal artery via collaterals. Patent anterior tibial artery and posterior tibial artery. Patent but small peroneal artery. Runoff arteriogram to the left foot was performed and demonstrates continued patency of the proximal mid and distal anterior tibial and posterior tibial arteries which continue into the foot. Patent respective dorsalis pedis, calcaneal and plantar branches. An arteriogram of the right lower extremity inflow was then performed. This demonstrates patent right common iliac external iliac, common femoral, proximal superficial femoral and profunda femoris. A wire was then advanced through the diagnostic catheter and use under fluoroscopic guidance to probe the origin of the occluded right common iliac artery. The catheter was then exchange over the wire for a RC2 catheter. This was used to probe the origin of the left common iliac artery. Multiple wire cath eter combinations were then used, under fluoroscopy guidance to try to recanalize the occluded left common iliac artery without success. Unsuccessful right groin access, up and over attempt at left common iliac artery recanalization. Catheter, wire and sheath were removed. A 6 [place] Mynx device was used to close the right groin arteriotomy. Pressure held and hemostasis achieved. A sterile dressing was applied to the site. The patient tolerated the procedure well and was returned to the PRU in stable condition. EBL: < 5 mL. Complications:None. Impression: 1. Left leg angiogram demonstrates complete occlusion of inflow with occluded left common iliac, internal iliac, external iliac and common femoral artery. 2. Distal reconstitution of the profunda femoris via collaterals. Complete occlusion of the proximal mid and distal left superficial femoral artery. 3. Distal reconstitution of the mid popliteal artery with good 2 vessel runoff into the left foot. 4. Unsuccessful attempt at endovascular recanalization. Patient will be referred to vascular surgery for bypass options. Thank you for this referral. Cc CHERISE Holder MD Oct 15, 2020 11:06
== END ==
LOC: M IRPRO 07:24
PROVIDERS: ATTEND Physician Assistant
DX: I70.222 Atherosclerosis of native arteries of extremities with rest pain, left leg (principal); I70.249 Atherosclerosis of native arteries of left leg with ulceration of unspecified site; I70.201 Unspecified atherosclerosis of native arteries of extremities, right leg; I70.92 Chronic total occlusion of artery of the extremities

== ENCOUNTER → 2020-11-02 | Outpatient (POV) | payer MEDICARE, OTHER ==
[~2020-11-02] VITALS: Ht 185.4 cm; Wt 72.7 kg
[~2020-11-02] MED LIST changes: -ISOVUE-300 61% 50ML VIAL As Ordered ONE; -LIDOCAINE 1% MDV 20ML VIAL As Ordered ONE; -MIDAZOLAM INJ 2MG/2ML VIAL (J2250 PER 1MG) As Ordered ONE; -diphenhydrAMINE 50MG/ML VIAL (J1200) As Ordered ONE; -fentaNYL 100 MCG/2 ML INJECTION (J3010) As Ordered ONE
[2020-11-02 10:15] VITALS: BP 162/95
--- NOTE | 2020-11-03 13:06 | IRPN ---
[facility] IR Progress Note IR Progress Note DATE: Nov 02, 2020 FOLLOW-UP: 65-year-old male with left lower extremity rest pain, nonhealing ulcer and erectile dysfunction now status post left lower extremity angiography which demonstrates complete occlusion of left lower extremity inflow. Occluded left common iliac, internal iliac, external iliac artery with reconstitution of the profunda femoris. Occluded proximal, mid and distal left superficial femoral artery and proximal popliteal artery with distal reconstitution of mid popliteal artery and 2 vessel runoff to the left foot. This was not amenable to endovascular recanalization and the patient was referred to vascular surgery. He reports that he has not heard from them. ON EXAMINATION: Right groin access site is healed. No bruising, tenderness, lump or pulsatile mass. IMPRESSION: Doing well status post left lower extremity angiography. Right groin access site is healed. Patient is awaiting vascular surgery opinion. We checked with vascular surgery department today and they reported difficulty in contacting the patient. However, they did reassure us that they will reach out to the patient gave him an appointment. Thank you for this referral. Cc Dr. Mendez Allergies Coded Allergies: No Known Allergies (Unverified , 11/28/16) VS,Fishbone, I+O VS, Fishbone, I+O Vital Signs Date Time Temp Pulse Resp B/P (MAP) Pulse Ox O2 Delivery O2 Flow Rate FiO2 11/02/20 10:15 98.8 105 20 162/95 (117) 98 Room Air CHERISE DREW MD Nov 03, 2020 13:06
== END ==
LOC: M TMIRPOV 08:24
PROVIDERS: ATTEND Radiology Diagnostic Radiology
DX: Z48.812 Encounter for surgical aftercare following surgery on the circulatory system (principal); I70.249 Atherosclerosis of native arteries of left leg with ulceration of unspecified site; L97.829 Non-pressure chronic ulcer of other part of left lower leg with unspecified severity; N52.9 Male erectile dysfunction, unspecified

== ENCOUNTER → 2020-11-02 | Outpatient (CLI) | payer MEDICARE, OTHER ==
[2020-11-02 10:01] LABS: INR 1.45
[2020-11-02 10:02] LABS: PARTIAL THROMBOPLASTIN TIME 36.8 SECONDS (24.2-38.5)
[2020-11-02 10:22] LABS: ALBUMIN 2.4 GM/DL (3.2-5.2); ALT/SGPT 41 U/L (12-78); BILIRUBIN,DIRECT 1.2 MG/DL (0.0-0.2); BILIRUBIN,TOTAL 1.9 MG/DL (0.2-1.0); BLOOD UREA NITROGEN 11 MG/DL (7-18); CALCIUM LEVEL 8.2 MG/DL (8.8-10.2); CARBON DIOXIDE LEVEL 32 MEQ/L (21-32); CHLORIDE LEVEL 108 MEQ/L (98-107); CREATININE FOR GFR 1.04 MG/DL (0.70-1.30); GLOMERULAR FILTRATION RATE > 60.0 (>49); GLUCOSE, FASTING 98 MG/DL (70-100); IRON (FE) 172 UG/DL (65-175); POTASSIUM SERUM 3.5 MEQ/L (3.5-5.1); SODIUM LEVEL 144 MEQ/L (136-145); TOTAL IRON BINDING CAPACITY 187 UG/DL (250-450); TOTAL PROTEIN 7.5 GM/DL (6.4-8.2)
[2020-11-02 10:38] LABS: HEPATITIS B SURFACE ANTIGEN NEGATIVE (NEGATIVE)
[2020-11-02 11:06] LABS: HEPATITIS C VIRUS ABY INDEX 0.1 INDEX (<0.8)
[2020-11-03 15:08] LABS: ANTI-MITOCHONDRIAL ANTIBODY <20.0 Units (0.0-20.0); ANTI-SMOOTH MUSCLE ANTIBODY 26 Units (0-19); ANTINUCLEAR ANTIBODIES DIRECT Negative (Negative); HEPATITIS A IgG TOTAL Positive (Negative); HEPATITIS B CORE ANTIBODY IGG Negative (Negative); LIVER-KIDNEY MICROSOMAL ABY <20.1 Units (0.0-20.0)
== END ==
LOC: M LAB 08:17
PROVIDERS: ATTEND Internal Medicine Gastroenterology
DX: R94.5 Abnormal results of liver function studies (principal); K70.31 Alcoholic cirrhosis of liver with ascites

== ENCOUNTER 2020-12-11 13:56 | Emergency (ER) | payer MEDICARE, OTHER ==
[~2020-12-11] VITALS: Ht 185.4 cm; Wt 75.3 kg
[2020-12-11] MEDS ORDERED: FURO20TA2 PO (15:23)
[2020-12-11] MEDS ORDERED: ATOR1TAB21 PO (15:23)
[2020-12-11] MEDS ORDERED: MELO7.5T35 PO (15:23)
[2020-12-11] MEDS ORDERED: MULT400T10 PO (15:23)
[2020-12-11] MEDS ORDERED: GABA-282 PO (15:23)
[2020-12-11 15:27] LABS: BASO # 0.1 10^3/uL (0.0-0.2); BASO % 1.2 % (0.0-1.0); EOS # 0.3 10^3/uL (0.0-0.5); EOS % 3.2 % (0.0-3.0); HEMATOCRIT 32.6 % (42.0-52.0); HEMOGLOBIN 10.6 g/dl (13.5-17.5); LYMPH # 1.1 10^3/uL (1.5-5.0); LYMPH % 11.7 % (24.0-44.0); MEAN CORPUSCULAR HEMOGLOBIN 31.8 pg (27.0-33.0); MEAN CORPUSCULAR HGB CONC 32.5 g/dl (32.0-36.5); MEAN CORPUSCULAR VOLUME 97.9 fl (80.0-96.0); MONO # 1.5 10^3/uL (0.0-0.8); MONO % 15.9 % (2.0-8.0); NEUTROPHILS # 6.4 10^3/uL (1.5-8.5); NEUTROPHILS % 67.5 % (36.0-66.0); PLATELET COUNT, AUTOMATED 117 10^3/uL (150-450); RED BLOOD COUNT 3.33 10^6/uL (4.30-6.10); WHITE BLOOD COUNT 9.4 10^3/uL (4.0-10.0)
[2020-12-11 15:42] LABS: ERYTHROCYTE SEDIMENTATION RATE 28 mm/hr (0-20)
[2020-12-11 15:47] LABS: BLOOD UREA NITROGEN 6 MG/DL (7-18); C REACTIVE PROTEIN QUANTITATIV 2.58 MG/DL (0.00-0.30); CALCIUM LEVEL 8.5 MG/DL (8.8-10.2); CARBON DIOXIDE LEVEL 28 MEQ/L (21-32); CHLORIDE LEVEL 102 MEQ/L (98-107); CREATININE FOR GFR 1.04 MG/DL (0.70-1.30); GLOMERULAR FILTRATION RATE > 60.0 (>49); GLUCOSE, FASTING 141 MG/DL (70-100); POTASSIUM SERUM 3.3 MEQ/L (3.5-5.1); SODIUM LEVEL 137 MEQ/L (136-145)
[2020-12-11] MEDS ORDERED: POTASSIUM CHLORIDE 10 MEQ SR TABLET PO ONE (15:50)
--- NOTE | 2020-12-11 15:56 | REP ---
INDICATION: LLE pain r/o DVT COMPARISON: None. TECHNIQUE: Álvarez scale and color Doppler evaluation using linear high frequency transducer. FINDINGS: Ultrasound examination of the left lower extremity deep venous structures is severely limited due to recent arterial graft placement. Visualized portions of the venous structures including common femoral vein and mid to distal femoral vein as well as popliteal vein are patent and without thrombus. Contralateral common femoral vein is patent. Two fluid collections are identified likely related to recent surgery and may represent seroma at the level of the common femoral vein measuring 7 x 4 x 4.6 cm and at the level of the posterior tibial vein measuring 6 x 2 x 4 cm. IMPRESSION: 1. Limited examination. No evidence for deep venous thrombosis of the visualized veins.. 2. Two fluid collections as described above possibly postsurgical seromas. <Electronically signed by Jersey Kaufman > 12/11/20 [id number]
[2020-12-11] MEDS ORDERED: ceFAZolin SOD 1 GM in D5W MINI-BAG PLUS 50 ML IV ONE (16:20)
[2020-12-11] MEDS ORDERED: NS 1,000 ML IV SCH (16:20)
[2020-12-11 17:37] VITALS: BP 150/74
[2020-12-11 18:36] LABS: RSV AMPLIFICATION NEGATIVE (NEGATIVE)
== END 2020-12-11 17:37 | disposition short-term general hospital (02) ==
LOC: M ED 13:56
DX: L03.116 Cellulitis of left lower limb (principal); M79.89 Other specified soft tissue disorders; Z95.820 Peripheral vascular angioplasty status with implants and grafts; K76.6 Portal hypertension; K74.60 Unspecified cirrhosis of liver; F10.10 Alcohol abuse, uncomplicated; F41.0 Panic disorder [episodic paroxysmal anxiety]; F17.200 Nicotine dependence, unspecified, uncomplicated; Z79.899 Other long term (current) drug therapy
CPT/HCPCS: 80048; 83605; 85025; 85652; 86140; 87040; 87631; 93041; 93971; 94760; 96365; 99285; J0690

== ENCOUNTER 2021-03-01 09:52 | Inpatient (IN) | payer MEDICARE, OTHER ==
[~2021-03-01] VITALS: Ht 185.4 cm; Wt 67.0 kg
[2021-03-01] VITALS (8 sets, daily range): BP systolic 122–128; BP diastolic 73–80
[2021-03-01] MEDS: GABAPENTIN 300 MG CAP PO SCH ×2 (09:00→20:32)
[~2021-03-01 09:52] MED LIST changes: +ATOR1TAB21 PO; +FURO20TA2 PO; +GABA-282 PO; +MELO7.5T35 PO; +MULT400T10 PO
[2021-03-01 10:36] LABS: VENOUS BASE EXCESS 0.1 (-2.0-2.0); VENOUS HCO3 25.5 MEQ/L (23.0-27.0); VENOUS O2 SATURATION 55.5 % (60.0-80.0); VENOUS PARTIAL PRESSURE CO2 44.7 mmHg (38.0-50.0); VENOUS PARTIAL PRESSURE O2 32.3 mmHg (30.0-50.0); VENOUS PH 7.374 UNITS (7.330-7.430); VENOUS TOTAL CO2 26.9 MEQ/L (24.0-28.0)
--- NOTE | 2021-03-01 10:36 | REP ---
INDICATION: DYSPNEA/COUGH COMPARISON: Chest CT dated 04/22/2020 TECHNIQUE: Portable AP view of the chest FINDINGS: Mediastinum and cardiac silhouette are normal. Linear platelike fibroatelectatic changes in the right midlung zone along with blunting and opacity at the right diaphragmatic surface may represent acute and or chronic changes including small pleural effusion and atelectasis. Left hemithorax is clear. No pneumothorax. Skeletal structures are intact. IMPRESSION: Acute and or chronic right-sided changes. Clinical correlation is recommended. <Electronically signed by Jersey Kaufman > 03/01/21 1031
[2021-03-01 10:38] LABS: BASO # 0.1 10^3/uL (0.0-0.2); BASO % 1.3 % (0.0-1.0); EOS # 0.3 10^3/uL (0.0-0.5); EOS % 3.4 % (0.0-3.0); HEMATOCRIT 26.1 % (42.0-52.0); HEMOGLOBIN 7.8 g/dl (13.5-17.5); LYMPH # 1.2 10^3/uL (1.5-5.0); LYMPH % 15.1 % (24.0-44.0); MEAN CORPUSCULAR HEMOGLOBIN 21.9 pg (27.0-33.0); MEAN CORPUSCULAR HGB CONC 29.9 g/dl (32.0-36.5); MEAN CORPUSCULAR VOLUME 73.3 fl (80.0-96.0); MONO # 1.1 10^3/uL (0.0-0.8); MONO % 14.2 % (2.0-8.0); NEUTROPHILS % 65.3 % (36.0-66.0); PLATELET COUNT, AUTOMATED 149 10^3/uL (150-450); RED BLOOD COUNT 3.56 10^6/uL (4.30-6.10); WHITE BLOOD COUNT 7.7 10^3/uL (4.0-10.0)
[2021-03-01 11:09] LABS: ALBUMIN 2.1 GM/DL (3.2-5.2); ALT/SGPT 17 U/L (12-78); BILIRUBIN,DIRECT 0.6 MG/DL (0.0-0.2); BILIRUBIN,TOTAL 1.2 MG/DL (0.2-1.0); NT-PRO BNP 50 PG/ML (<125); TOTAL PROTEIN 7.6 GM/DL (6.4-8.2)
[2021-03-01] MEDS ORDERED: ASPI81CH33 PO (11:23)
[2021-03-01] MEDS ORDERED: CLOP75TA2 PO (11:23)
[2021-03-01 11:45] LABS: BLOOD UREA NITROGEN 8 MG/DL (7-18); CALCIUM LEVEL 8.2 MG/DL (8.8-10.2); CARBON DIOXIDE LEVEL 25 MEQ/L (21-32); CHLORIDE LEVEL 103 MEQ/L (98-107); CREATININE FOR GFR 0.92 MG/DL (0.70-1.30); GLOMERULAR FILTRATION RATE > 60.0 (>49); GLUCOSE, FASTING 133 MG/DL (70-100); POTASSIUM SERUM 3.2 MEQ/L (3.5-5.1); SODIUM LEVEL 136 MEQ/L (136-145); TROPONIN I < 0.02 NG/ML (< 0.10)
[2021-03-01] MEDS ORDERED: POTASSIUM CHLORIDE 10 MEQ SR TABLET PO ONE (12:45)
[2021-03-01] MEDS ORDERED: ISOVUE-370 76% 100ML VIAL As Ordered ONE (12:56)
--- NOTE | 2021-03-01 13:19 | REP ---
INDICATION: sob COMPARISON: 04/12/2020 TECHNIQUE: Axial contrast enhanced images from the thoracic inlet to the upper abdomen using pulmonary embolus technique with multiplanar re-formations. 75 ml Isovue 370 intravenous contrast material administered without complication. This CT examination was performed using the following dose reduction techniques: Automated exposure control, adjustment of mA and/or kv according to the patient's size, and use of iterative reconstruction technique. FINDINGS: Satisfactory enhancement of the pulmonary vasculature is achieved and no filling defects are identified to suggest pulmonary embolus. Further evaluation of the mediastinum demonstrates atherosclerotic changes to the thoracic aorta without aneurysm or dissection. Atherosclerotic changes to the coronary arteries also identified without cardiomegaly or pericardial effusion Large right pleural effusion and right lower lobe atelectasis noted along with underlying chronic interstitial changes and scattered subpleural fibrosis. No obvious axillary, hilar, or mediastinal adenopathy. Surrounding musculoskeletal structures demonstrate age-related degenerative changes. IMPRESSION: 1. No pulmonary embolus. 2. Large right pleural effusion and right lower lobe atelectasis. 3. Atherosclerotic changes to the thoracic aorta and coronary arteries. 4. Visualized upper abdomen demonstrates changes related to cirrhosis and portal hypertension including perihepatic ascites as well as recanalized umbilical vein. Cholelithiasis noted. <Electronically signed by Jersey Kaufman > 03/01/21 [id number]
[2021-03-01 13:31] LABS: MAGNESIUM LEVEL 1.5 MG/DL (1.8-2.4)
[2021-03-01] MEDS ORDERED: HOME MED LIST COMPLETE! XX SCH (14:20)
[2021-03-01] MEDS ORDERED: POTASSIUM CHLORIDE 10% LIQ 20 MEQ/15 ML UDC PO ONE (14:45)
[2021-03-01] MEDS ORDERED: LORazepam 2 MG TAB PO PRN (14:50)
--- NOTE | 2021-03-01 14:56 | HPEPDOC ---
General Date of Admission 03/01/21 Date of Service: Mar 01, 2021 Chief Complaint The patient is a 65-year-old male admitted with a reason for visit of SOB. Source: Patient Exam Limitations: No limitations History of Present Illness Patient is 65 years old male with past medical history of EtOH abuse, liver cirrhosis, hypertension, hyperlipidemia, megaloblastic anemia, left femoral artery bypass presented to hospital with progressive fatigue. Patient stated that 1 week ago he started having progressive fatigue which became worse today and it was associated with progressive shortness of breath. Patient reported intermittent cough. He denied any fever, chills, chest pain. In ER patient was found to have heart rate of 110, no leukocytosis, hemoglobin 7.8, total bilirubin 1.2. Chest CTA showed Large right pleural effusion and right lower lobe atelectasis. Cirrhosis and portal hypertension including perihepatic ascites as well. Patient refused digital rectal exam Home Medications Scheduled Aspirin (Aspirin) 81 Mg Tab.chew, 81 MG PO DAILY, (Reported) Atorvastatin Calcium (Atorvastatin Calcium) 20 Mg Tablet, 20 MG PO DAILY, (Reported) Clopidogrel Bisulfate (Clopidogrel) 75 Mg Tablet, 75 MG PO DAILY, (Reported) HAS NOT TAKEN IN 3 DAYS DUE TO FEELING DIZZY Furosemide (Furosemide) 20 Mg Tablet, 20 MG PO BID, (Reported) Gabapentin (Gabapentin) 300 Mg Capsule, 300 MG PO BID, (Reported) Multivitamin with Folic Acid (Tab-A-Martha Tablet) 400 Mcg Tablet, 1 TAB PO DAILY, (Reported) Scheduled PRN Docusate Sodium (Colace) 100 Mg Capsule, 100 MG PO BID PRN for CONSTIPATION, (Reported) Allergies Coded Allergies: No Known Allergies (Unverified , 11/28/16) Past Medical History Medical History EtOH abuse, liver cirrhosis, hypertension, hyperlipidemia, megaloblastic anemia, left femoral artery bypass, MEGAKARYOCYTIC APLASIA, DEPRESSION, CHRONIC GASTRITIS, DRUG ABUSE NICOTINE DEPENDENCE Surgical History VASECTOMY 1998 ANGIOPLASTY 2020 Family History FATHER: MOTHER: ALIVE SIBLINGS: ALIVE 1 BROTHER(S) , 1 SISTER(S) - HEALTHY. MOTHER HAS HAD HEART SURGERIES. Social History * Smoker: current smoker Alcohol: heavy Drugs: marijuana A-FIB/CHADSVASC A-FIB History Current/History of A-Fib/PAF?: No Current PO Anticoag Therapy: No Review of Systems Constitutional: Reports: Malaise, Fatigue; Denies: Chills, Fever Eyes: Denies: Pain ENT: Denies: Head Aches Skin: Denies: Rash, Lesions Pulmonary: Reports: Dyspnea, Cough Cardiovascular: Denies: Chest Pain, Palpitations Gastrointestinal: Denies: Nausea, Vomiting Genitourinary: Denies: Dysuria, Frequency Hematologic: Denies: Bruising Endocrine: Denies: Polydipsia, Polyphagia Musculoskeletal: Denies: Neck Pain Neurological: Denies: Weakness Psych: Reports: Mood Normal Physical Examination General Exam: Positive: Alert, Cooperative Eye Exam: Positive: PERRLA ENT Exam: Positive: Atraumatic Neck Exam: Positive: Supple; Negative: JVD Chest Exam: Positive: Diminished Heart Exam: Positive: Tachycardic Telemetry: Positive: Sinus Abdomen Exam: Positive: Hepatospenomegaly Extremity Exam: Negative: Cyanosis Skin Exam: Negative: Nl turgor and temperature Neuro Exam: Positive: Strength at 5/5 X4 ext, Cranial Nerves 3-12 NL Psych Exam: Positive: Mental status NL Vital Signs Vital Signs Date Time Temp Pulse Resp B/P (MAP) Pulse Ox O2 Delivery O2 Flow Rate FiO2 03/01/21 12:30 97.5 113 18 131/70 (90) 97 03/01/21 10:17 Room Air Laboratory Data Labs 24H Laboratory Tests 2 03/01/21 10:21: Immature Granulocyte % (Auto) 0.7, Neutrophils (%) (Auto) 65.3, Lymphocytes (%) (Auto) 15.1L, Monocytes (%) (Auto) 14.2H, Eosinophils (%) (Auto) 3.4H, Basophils (%) (Auto) 1.3H, Neutrophils # (Auto) 5.0, Lymphocytes # (Auto) 1.2L, Monocytes # (Auto) 1.1H, Eosinophils # (Auto) 0.3, Basophils # (Auto) 0.1, Nucleated Red Blood Cells % (auto) 0.0, Blood Gas Bicarbonate Standard 24.0, Venous Blood pH 7.374, Venous Blood Partial Pressure CO2 44.7, Venous Blood Partial Pressure O2 32.3, Venous Blood Total Carbon Dioxide 26.9, Venous Blood HCO3 25.5, Venous Blood Oxygen Saturation 55.5L, Venous Blood Base Excess 0.1, Anion Gap 8, Glomerular Filtration Rate > 60.0, Calcium Level 8.2L, Magnesium Level 1.5L, Total Bilirubin 1.2H, Direct Bilirubin 0.6H, Aspartate Amino Transf (AST/SGOT) 54H, Alanine Aminotransferase (ALT/SGPT) 17, Alkaline Phosphatase 172H, Troponin I < 0.02, KQ-Cot-M-Type Natriuretic Peptide 50, Total Protein 7.6, Albumin 2.1L, Albumin/Globulin Ratio 0.4, Thyroid Stimulating Hormone (TSH) 1.830 CBC/BMP Laboratory Tests 03/01/21 10:21 Microbiology Microbiology 03/01/21 Blood Culture, Received Pending 03/01/21 Respiratory Virus Panel (PCR) (JUAN) - Final, Complete 03/01/21 Blood Culture, Received Pending Assessment/Plan Patient is 65 years old male with past medical history of EtOH abuse, liver ci rrhosis, hypertension, hyperlipidemia, megaloblastic anemia, left femoral artery bypass presented to hospital with progressive fatigue. Patient stated that 1 week ago he started having progressive fatigue which became worse today and it was associated with progressive shortness of breath. Patient reported intermittent cough. He denied any fever, chills, chest pain. In ER patient was found to have heart rate of 110, no leukocytosis, hemoglobin 7.8, total bilirubin 1.2. Chest CTA showed Large right pleural effusion and right lower lobe atelectasis. Cirrhosis and portal hypertension including perihepatic ascites as well. Patient refused digital rectal exam Problems (1) Dyspnea Status: Acute Problem Text: Multifactorial. Secondary to a large right pleural effusion and anemia (2) Pleural effusion Status: Acute Problem Text: CTA showed large right pleural effusion most likely secondary to liver cirrhosis Ordered thoracocentesis with pleural panel Continue Lasix p.o., added spironolactone (3) Liver cirrhosis Status: Chronic Problem Text: Will proceed with CT pelvis and abdomen Lasix p.o., spironolactone p.o. (4) Anemia Status: Acute Problem Text: Patient baseline hemoglobin around 10-11 We will check stool for occult blood, B12, folate, iron panel will transfuse 1 unit of blood (5) Hyperlipidemia Status: Chronic Problem Text: Continue statin (6) Alcohol abuse Status: Chronic Problem Text: HARDIKWA (7) Hypertension Status: Chronic Problem Text: Continue home meds (8) Peripheral vascular disease Status: Chronic Problem Text: Continue aspirin and Plavix Plan / VTE VTE Prophylaxis Ordered?: Yes CARA DE JESUS DO Mar 01, 2021 14:56
[2021-03-01 15:32] LABS: IRON (FE) 15 UG/DL (65-175); LDH LACTATE DEHYDROGENASE 241 U/L (87-241); PERCENT SATURATION 4.7 % (19.7-50.0); TOTAL IRON BINDING CAPACITY 316 UG/DL (250-450)
[2021-03-01 15:48] LABS: FOLATE 23.1 NG/ML; VITAMIN B12 LEVEL 1508 PG/ML
[2021-03-01 16:53] LABS: INR 1.61; PROTHROMBIN TIME 19.5 SECONDS (12.7-14.5)
--- NOTE | 2021-03-01 17:17 | REP ---
INDICATION: S/P RIGHT SIDED THORACENTESIS. COMPARISON: Comparison chest x-ray is from 10:19 a.m. on March 01, 2021. TECHNIQUE: Two views.. FINDINGS: Patient is status post right sided ultrasound-guided thoracentesis. There is very slight residual blunting of the right lateral pleural angle. A tiny amount of pleural air is seen at the apex and superolateral hemithorax on the right. The left lung is well inflated and unchanged. Heart is not enlarged. The thoracic aorta is somewhat tortuous. Pulmonary vasculature is not increased. IMPRESSION: Tiny right-sided consider follow-up exam. Pneumothorax post right thoracentesis. Findings discussed with Dr. Demarco, referring provider. <Electronically signed by Gui Odonnell > 03/01/21 [id number]
--- NOTE | 2021-03-01 17:56 | REPVR ---
PROCEDURE INFORMATION: Exam: CT Abdomen And Pelvis Without Contrast Exam date and time: 03/01/2021 5:00 PM Age: 65 years old Clinical indication: Abdominal pain; Additional info: Cirrhosis/ascites TECHNIQUE: Imaging protocol: Computed tomography of the abdomen and pelvis without contrast. Radiation optimization: All CT scans at this facility use at least one of these dose optimization techniques: automated exposure control; mA and/or kV adjustment per patient size (includes targeted exams where dose is matched to clinical indication); or iterative reconstruction. COMPARISON: CT ABD/PEL W/IV CONTRAST ONLY 04/22/2020 5:09 AM FINDINGS: Lungs: A small dependent consolidation is seen within the right lower lobe of the lung, suggestive of atelectatic change. Pneumonia is within the differential. This is stable. Additional atelectatic changes are noted within the left lower lobe and right middle lobe. Pleural spaces: Itmd-ox-lrcsdrwr right pleural effusion. Liver: Nodularity of the hepatic contour again visualized, consistent with the clinical history of cirrhosis. Hyperattenuation of the left hepatic lobe described on the previous CT has improved on current images. Gallbladder and bile ducts: Small peripheral hyperdense gallstones or polyps are identified, new compared to the prior study. Pancreas: Normal contour. No ductal dilation. Spleen: Unremarkable as visualized on these noncontrast images. No splenomegaly. Adrenal glands: No mass. Kidneys and ureters: Contrast is seen within the renal collecting systems and bladder. No hydronephrosis bilaterally. Mild nonspecific perinephric stranding bilaterally. Stomach and bowel: Colonic wall thickening visualized, most significant involving the ascending colon and sigmoid colon. Pericolonic stranding is visualized adjacent to the ascending colon. Colitis is suggested, although additional pathology cannot be excluded. Sigmoid diverticula are also noted. Evaluation of bowel is limited by the absence of oral contrast. Appendix: The appendix is not visualized. Intraperitoneal space: Mild abdominal and pelvic ascites, which has significantly improved compared to the previous exam. Vasculature: Varices are identified, including paraesophageal and umbilical vein varices. A fem-fem bypass graft is identified, with additional graft within the medial left thigh. Atherosclerotic changes. A nondilated abdominal aorta is identified. Lymph nodes: No enlarged lymph nodes. Urinary bladder: See above. Reproductive: Unremarkable as visualized. Bones/joints: The lumbar vertebral bodies are stable in height compared to the prior study. There is a mild decrease in vertebral height of L2 with a focal concavity or Schmorl's node of the superior L3 endplate. Mild retrolisthesis of L4 on L5 and L5 on S1. There is a mild stable decrease in vertebral height/compression deformity of the T10 vertebral body. Bilateral sacroiliac arthropathy seen, with sclerotic changes. 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 The etiology of this nodule is indeterminate. Other findings: Evaluation of the intracranial vessels is limited by the absence of intravenous contrast. IMPRESSION: 1. Colonic wall thickening visualized, most significant involving the ascending colon and sigmoid colon. Pericolonic stranding is visualized adjacent to the ascending colon. Colitis is suggested, although additional pathology cannot be excluded. Sigmoid diverticula are also noted. 2. Nodularity of the hepatic contour again visualized, consistent with the clinical history of cirrhosis. 3. Varices are identified, including paraesophageal and umbilical vein varices. 4. Mild abdominal and pelvic ascites, which has significantly improved compared to the previous exam. 5. Tldm-gt-mziulfxl right pleural effusion. 6. A small dependent consolidation is seen within the right lower lobe of the lung, suggestive of atelectatic change. Pneumonia is within the differential. This is stable. Additional atelectatic changes are noted within the left lower lobe and right middle lobe. 7. Small peripheral hyperdense gallstones or polyps are identified, new compared to the prior study. 8. 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 9. Additional findings described above. Electronically signed by: Dejuan Gabriel On 03/01/2021 17:56:11 PM
[2021-03-01 17:57] LABS: PH BODY FLUID 7.732 UNITS (NOT ESTABLISHED); SOURCE, BODY FLUID pH PLEURAL
[2021-03-01 18:06] LABS: APPEARANCE, BODY FLUID CLOUDY (CLEAR); PLEURAL FL COLOR YELLOW (COLORLESS); SOURCE, BODY FLUID PLEURAL
[2021-03-01] MEDS: FUROSEMIDE 20 MG TAB PO SCH (18:09)
[2021-03-01] MEDS: FOLIC ACID 1 MG TAB PO SCH (18:09)
[2021-03-01] MEDS: CLOPIDOGREL 75 MG TAB PO SCH (18:09)
[2021-03-01] MEDS: THIAMINE 100 MG TAB PO SCH (18:09)
[2021-03-01 18:37] LABS: AMYLASE, BODY FLUID 54 U/L (NOT ESTABLISHED); CHOLESTEROL, BODY FLUID < 50 MG/DL (NOT ESTABLISHED); LDH, BODY FLUID 114 U/L (NOT ESTABLISHED); SOURCE, BODY FLUID ALBUMIN PLEURAL; SOURCE, BODY FLUID AMYLASE PLEURAL; SOURCE, BODY FLUID CHOL PLEURAL; SOURCE, BODY FLUID GLUCOSE PLEURAL; SOURCE, BODY FLUID LDH PLEURAL; SOURCE, BODY FLUID TOT PROTEIN PLEURAL; SOURCE, BODY FLUID TRIG PLEURAL; TOTAL PROTEIN, BODY FLUID 2.2 G/DL (NOT ESTABLISHED); TRIGLYCERIDE, BODY FLUID 28 MG/DL (NOT ESTABLISHED)
--- NOTE | 2021-03-01 20:43 | ECGEPIP ---
[facility] - ED Test Date: 2021-03-01 Pat Name: CONI ZAMORA Department: Room: - Gender: Male Resident Services Coordinator: : 1955 Requested By: Abigail Navarro Order Number: [id number] Reading MD: Adilson Lobato Measurements Intervals Lee Rate: 106 P: 36 CO: 130 QRS: -10 QRSD: 94 T: 55 QT: 384 QTc: 510 Interpretive Statements Sinus tachycardia Nonspecific ST-T wave abnormalities Low QRS complex voltage in the limb leads Similar to tracing done 02-22-16 Electronically Signed on 03-01-2021 20:42:28 EDT by Adilson Lobato
[2021-03-01] MEDS ORDERED: HEPARIN SOD (PORCINE) 5000UNITS/ML 1ML VIAL/SYRINGE SC SCH (21:00)
[2021-03-02 00:56] LABS: HEMATOCRIT 27.7 % (42.0-52.0); HEMOGLOBIN 8.6 g/dl (13.5-17.5)
[2021-03-02 06:00] VITALS: BP 109/69
[2021-03-02 07:10] LABS: HEMATOCRIT 27.1 % (42.0-52.0); HEMOGLOBIN 8.6 g/dl (13.5-17.5); MEAN CORPUSCULAR HEMOGLOBIN 23.7 pg (27.0-33.0); MEAN CORPUSCULAR HGB CONC 31.7 g/dl (32.0-36.5); MEAN CORPUSCULAR VOLUME 74.7 fl (80.0-96.0); PLATELET COUNT, AUTOMATED 121 10^3/uL (150-450); RED BLOOD COUNT 3.63 10^6/uL (4.30-6.10); WHITE BLOOD COUNT 6.7 10^3/uL (4.0-10.0)
[2021-03-02 07:42] LABS: ALBUMIN 1.6 GM/DL (3.2-5.2); ALT/SGPT 15 U/L (12-78); BILIRUBIN,TOTAL 1.9 MG/DL (0.2-1.0); BLOOD UREA NITROGEN 8 MG/DL (7-18); CALCIUM LEVEL 8.3 MG/DL (8.8-10.2); CARBON DIOXIDE LEVEL 26 MEQ/L (21-32); CHLORIDE LEVEL 108 MEQ/L (98-107); CREATININE FOR GFR 0.82 MG/DL (0.70-1.30); GLOMERULAR FILTRATION RATE > 60.0 (>49); GLUCOSE, FASTING 102 MG/DL (70-100); MAGNESIUM LEVEL 1.5 MG/DL (1.8-2.4); POTASSIUM SERUM 3.6 MEQ/L (3.5-5.1); SODIUM LEVEL 139 MEQ/L (136-145); TOTAL PROTEIN 6.6 GM/DL (6.4-8.2)
[2021-03-02] MEDS: FUROSEMIDE 20 MG TAB PO SCH ×2 (08:46→17:13)
[2021-03-02] MEDS: MULTIVITAMINS/MINERALS THERAP 1 TAB PO SCH (08:46)
[2021-03-02] MEDS: SPIRONOLACTONE 25 MG TAB PO SCH (08:46)
[2021-03-02] MEDS: THIAMINE 100 MG TAB PO SCH ×2 (08:46→19:38)
[2021-03-02] MEDS: ASPIRIN 81 MG CHEW TABLET PO SCH (08:46)
[2021-03-02] MEDS: CLOPIDOGREL 75 MG TAB PO SCH (08:46)
[2021-03-02] MEDS: GABAPENTIN 300 MG CAP PO SCH ×2 (08:46→19:38)
[2021-03-02] MEDS: ATORVASTATIN 20 MG TAB PO SCH (08:46)
[2021-03-02] MEDS: FOLIC ACID 1 MG TAB PO SCH (08:47)
[2021-03-02] MEDS ORDERED: MAG SULF 1GM/100ML (MAG RUN) 1 GM in IV 1 EA IV ONE (09:00)
--- NOTE | 2021-03-02 09:22 | REP ---
INDICATION: Pneumotorax COMPARISON: 03/01/2021 TECHNIQUE: PA and lateral. FINDINGS: Small right pleural effusion and basilar atelectasis noted. A very small right apical pneumothorax cannot be excluded and appears relatively similar to prior examination. Underlying chronic interstitial changes remains stable. Cardiac silhouette is normal. Skeletal structures are grossly intact. IMPRESSION: Small right pleural effusion and basilar atelectasis. Cannot exclude small stable right apical pneumothorax. <Electronically signed by Jersey Kaufman > 03/02/21 0942
[2021-03-02 13:26] LABS: HEMATOCRIT 29.8 % (42.0-52.0); HEMOGLOBIN 9.2 g/dl (13.5-17.5)
[2021-03-02 13:35] LABS: INR 1.5; PROTHROMBIN TIME 18.5 SECONDS (12.7-14.5)
[2021-03-02 14:00] VITALS: BP 106/70
--- NOTE | 2021-03-02 15:25 | REP ---
INDICATION: RIGHT THORACENTESIS. COMPARISON: None. TECHNIQUE: The procedure was performed under the direct supervision of Dr. Odonnell. The risks and benefits of the procedure were explained to the patient and informed consent was obtained. The right pleural effusion was localized using ultrasound guidance. The skin was prepped and draped in a sterile fashion. 5 mL of 1% lidocaine was used as a local anesthetic. An 8 [place] multi side hole catheter was inserted using trocar technique. 850 mL of karen colored fluid was withdrawn with a sample sent to the lab for analysis. Estimated blood loss: Less than 1 mL The patient tolerated the procedure well and there were no immediate complications. After the appropriate amount to monitor convalescence the patient was discharged from the department. FINDINGS: None IMPRESSION: Ultrasound-guided right thoracentesis. 850 mL of karen colored fluid was withdrawn with a sample sent to the lab for analysis. <Electronically signed by Aries Hightower > 03/01/21 1700 <Electronically signed by Gui Odonnell > 03/01/21 1836
[2021-03-02] MEDS: DOCUSATE SODIUM 100MG CAPSULE PO PRN (17:15)
[2021-03-02 19:04] LABS: HEMATOCRIT 27.8 % (42.0-52.0); HEMOGLOBIN 8.7 g/dl (13.5-17.5)
[2021-03-02 20:00] VITALS: BP 105/69
[2021-03-02 22:29] VITALS: BP 105/69
[2021-03-03 01:00] LABS: HEMATOCRIT 27.1 % (42.0-52.0); HEMOGLOBIN 8.5 g/dl (13.5-17.5)
[2021-03-03 06:00] VITALS: BP 107/71
[2021-03-03 07:00] VITALS: BP 107/71
[2021-03-03 08:26] LABS: HEMATOCRIT 27.9 % (42.0-52.0); HEMOGLOBIN 8.5 g/dl (13.5-17.5)
[2021-03-03] MEDS ORDERED: FUROSEMIDE 20 MG TAB PO SCH (09:00)
--- NOTE | 2021-03-03 09:03 | REP ---
INDICATION: pneumothorax. COMPARISON: Comparison chest x-ray March 02, 2021. TECHNIQUE: Two views.. FINDINGS: A tiny right apical pneumothorax is again seen unchanged from yesterday's radiograph.a there appears to be a small pleural air-fluid level at the level of the minor fissure peripherally in the right chest. Some fissural thickening is seen on the lateral radiograph. Heart is not enlarged. IMPRESSION: Small right apical pneumothorax persists. <Electronically signed by Gui Odonnell > 03/03/21 0834
[2021-03-03] MEDS: SPIRONOLACTONE 25 MG TAB PO SCH (09:15)
[2021-03-03] MEDS: MULTIVITAMINS/MINERALS THERAP 1 TAB PO SCH (09:15)
[2021-03-03] MEDS: DOCUSATE SODIUM 100MG CAPSULE PO PRN (09:15)
[2021-03-03] MEDS: THIAMINE 100 MG TAB PO SCH (09:16)
[2021-03-03] MEDS: GABAPENTIN 300 MG CAP PO SCH (09:16)
[2021-03-03] MEDS: ASPIRIN 81 MG CHEW TABLET PO SCH (09:16)
[2021-03-03] MEDS: FOLIC ACID 1 MG TAB PO SCH (09:16)
[2021-03-03] MEDS: CLOPIDOGREL 75 MG TAB PO SCH (09:16)
[2021-03-03] MEDS: ATORVASTATIN 20 MG TAB PO SCH (09:16)
[2021-03-03] MEDS ORDERED: IRON POLYSAC (NIFEREX) 150 MG CAP PO SCH (10:00)
[2021-03-03] MEDS ORDERED: FERR325T81 PO (11:25)
[2021-03-03] MEDS ORDERED: TORS10TA3 PO (11:25)
[2021-03-03] MEDS ORDERED: ALDA25TA2 PO (11:25)
--- NOTE | 2021-03-03 11:28 | IPNPDOC ---
Text Note Date of Service The patient was seen on 03/02/21. NOTE Subjective: No new acute events overnight. Patient denied any shortness of b reath, palpitations, chest pain. He stated that he feels much better today Objective: GENERAL APPEARANCE: NAD HEENT: no scleral icterus, no JVD, EOMI CARDIOVASCULAR: S1S2 LUNGS: Diminished lung sounds bilaterally ABDOMEN: soft & not tender w palpation MUSCULOSKELETAL: no cyanosis, no swelling INTEGUMENT: no generalized pallor NEUROLOGICAL: cranial nerve function from 2-12 intact, follows commands, speech not dysarthric Assessment/Plan Patient is 65 years old male with past medical history of EtOH abuse, liver cirrhosis, hypertension, hyperlipidemia, megaloblastic anemia, left femoral artery bypass presented to hospital with progressive fatigue. Patient stated that 1 week ago he started having progressive fatigue which became worse today and it was associated with progressive shortness of breath. Patient reported intermittent cough. He denied any fever, chills, chest pain. In ER patient was found to have heart rate of 110, no leukocytosis, hemoglobin 7.8, total bilir ubin 1.2. Chest CTA showed Large right pleural effusion and right lower lobe atelectasis. Cirrhosis and portal hypertension including perihepatic ascites as well. Patient refused digital rectal exam Problems (1) Dyspnea Resolved after thoracocentesis (2) Pleural effusion CTA showed large right pleural effusion most likely secondary to liver cirrhosis thoracocentesis with pleural panel was done. Fluid transudative. Chest x-ray showed small apical pneumothorax unchanged since yesterday. Continue Lasix p.o., added spironolactone (3) Liver cirrhosis CT pelvis and abdomen shows liver cirrhosis and thickening of colonic wall Lasix p.o., spironolactone p.o. Patient need to follow-up with GI team for possible colonoscopy and EGD in the outpatient settings (4) Anemia Patient baseline hemoglobin around 10-11 Iron panel shows low iron. Iron supplementation Await stool for occult blood, await B12 and folate level (5) Hyperlipidemia Continue statin (6) Alcohol abuse No signs of alcohol withdrawal CIWA (7) Hypertension Continue home meds (8) Peripheral vascular disease Continue aspirin and Plavix VS,Fishbone, I+O VS, Fishbone, I+O Laboratory Tests 03/02/21 13:07 03/02/21 18:51 03/03/21 00:55 03/03/21 07:43 Vital Signs Date Time Temp Pulse Resp B/P (MAP) Pulse Ox O2 Delivery O2 Flow Rate FiO2 03/03/21 07:00 101 107/71 03/03/21 06:00 99.3 19 94 Room Air I&O- Last 24 Hours up to 6 AM 03/03/21 06:00 Intake Total 740 ml Output Total 0 ml Balance 740 ml CARA DE JESUS DO Mar 03, 2021 11:28
--- NOTE | 2021-03-03 17:25 | DS.PDOC ---
Discharge Summary General Date of Admission Mar 01, 2021 at 14:24 Date of Discharge 03/03/21 Discharge Summary PROCEDURES PERFORMED DURING STAY: Thoracocentesis ADMITTING DIAGNOSES: Dyspnea Pleural effusion Liver cirrhosis Anemia Hyperlipidemia Alcohol abuse Hypertension Peripheral vascular disease DISCHARGE DIAGNOSES: Dyspnea Pleural effusion Liver cirrhosis Anemia Hyperlipidemia Alcohol abuse Hypertension Peripheral vascular disease COMPLICATIONS/CHIEF COMPLAINT: Dyspnea,Liver Cirrhosis. HISTORY OF PRESENT ILLNESS: Patient is 65 years old male with past medical history of EtOH abuse, liver cirrhosis, hypertension, hyperlipidemia, kristel aloblastic anemia, left femoral artery bypass presented to hospital with progressive fatigue. Patient stated that 1 week ago he started having progressive fatigue which became worse today and it was associated with progressive shortness of breath. Patient reported intermittent cough. He denied any fever, chills, chest pain. In ER patient was found to have heart rate of 110, no leukocytosis, hemoglobin 7.8, total bilirubin 1.2. Chest CTA showed Large right pleural effusion and right lower lobe atelectasis. Cirrhosis and portal hypertension including perihepatic ascites as well. Patient refused digital rectal exam HOSPITAL COURSE: During the hospital stay following issue addressed 1) Dyspnea Resolved after thoracocentesis (2) Pleural effusion CTA showed large right pleural effusion most likely secondary to liver cirrhosis thoracocentesis with pleural panel was done. Fluid transudative. Chest x-ray showed small apical pneumothorax unchanged since yesterday. Patient received Lasix p.o. and spironolactone (3) Liver cirrhosis CT pelvis and abdomen shows liver cirrhosis and thickening of colonic wall Lasix p.o., spironolactone p.o. Patient need to follow-up with GI team for possible colonoscopy and EGD in the outpatient settings (4) Anemia Patient baseline hemoglobin around 10-11 Iron panel shows low iron. Iron supplementation Await stool for occult blood, await B12 and folate level (5) Hyperlipidemia Continue statin (6) Alcohol abuse No signs of alcohol withdrawal CIWA (7) Hypertension Continue home meds (8) Peripheral vascular disease Continue aspirin and Plavix DISCHARGE MEDICATIONS: Please see below. ALLERGIES: Please see below. PHYSICAL EXAMINATION ON DISCHARGE: VITAL SIGNS: Please see below. GENERAL APPEARANCE: NAD HEENT: no scleral icterus, no JVD, EOMI CARDIOVASCULAR: S1S2 LUNGS: Diminished lung sounds bilaterally ABDOMEN: soft & not tender w palpation MUSCULOSKELETAL: no cyanosis, no swelling INTEGUMENT: no generalized pallor NEUROLOGICAL: cranial nerve function from 2-12 intact, follows commands, speech not dysarthric LABORATORY DATA: Please see below. IMAGING: See above PROGNOSIS: Fair ACTIVITY: [As tolerated]. DIET: Cardiac DISPOSITION: Home ITEMS TO FOLLOWUP ON ON OUTPATIENT: Follow-up with PCP and GI team DISCHARGE CONDITION: [Stable]. TIME SPENT ON DISCHARGE:40 minutes. Vital Signs/I&Os Vital Signs Date Time Temp Pulse Resp B/P (MAP) Pulse Ox O2 Delivery O2 Flow Rate FiO2 03/03/21 07:00 101 107/71 03/03/21 06:00 99.3 19 94 Room Air I&O- Last 24 Hours up to 6 AM 03/03/21 06:00 Intake Total 740 ml Output Total 0 ml Balance 740 ml Laboratory Data CBC/BMP Laboratory Tests 03/02/21 18:51 03/03/21 00:55 03/03/21 07:43 Microbiology Microbiology 03/01/21 Acid Fast Stain, Received Pending 03/01/21 Mycobacterial Culture, Received Pending 03/01/21 Fungal Smear, Received Pending 03/01/21 Fungal Culture, Received Pending 03/01/21 Gram Stain - Final, Complete 03/01/21 Anaerobic Culture - Final, Complete 03/01/21 Body Fluid Culture - Final, Complete 03/01/21 Blood Culture - Preliminary, Resulted No Growth after 48 hours. All Specime... 03/01/21 Respiratory Virus Panel (PCR) (JUAN) - Final, Complete 03/01/21 Blood Culture - Preliminary, Resulted No Growth after 48 hours. All Specime... Discharge Medications Scheduled Aspirin (Aspirin) 81 Mg Tab.chew, 81 MG PO DAILY, (Reported) Atorvastatin Calcium (Atorvastatin Calcium) 20 Mg Tablet, 20 MG PO DAILY, (Reported) Clopidogrel Bisulfate (Clopidogrel) 75 Mg Tablet, 75 MG PO DAILY, (Reported) HAS NOT TAKEN IN 3 DAYS DUE TO FEELING DIZZY Ferrous Sulfate (Iron) 325 Mg Tablet, 1 TAB PO BID Furosemide (Furosemide) 20 Mg Tablet, 20 MG PO BID, (Reported) Gabapentin (Gabapentin) 300 Mg Capsule, 300 MG PO BID, (Reported) Multivitamin with Folic Acid (Tab-A-Martha Tablet) 400 Mcg Tablet, 1 TAB PO DAILY, (Reported) Spironolactone (Aldactone) 25 Mg Tablet, 25 MG PO QAM Torsemide (Torsemide) 10 Mg Tablet, 10 MG PO DAILY Scheduled PRN Docusate Sodium (Colace) 100 Mg Capsule, 100 MG PO BID PRN for CONSTIPATION, (Reported) Allergies Coded Allergies: No Known Allergies (Unverified , 11/28/16) CARA DE JESUS DO Mar 03, 2021 17:25
== END 2021-03-03 12:20 | disposition home or self-care (01) | DRG 433 ==
LOC: EDBD 09:52 → M ED 09:52 → M ED INP 14:24 → ENRESERV 14:45 → M MS5PR 17:10
PROVIDERS: ADMIT Internal Medicine; ATTEND Internal Medicine
PROC: 30233N1 Transfusion of Nonautologous Red Blood Cells into Peripheral Vein, Percutaneous Approach (ICD-10-PCS; 2021-03-01)
PROC: 0W993ZZ Drainage of Right Pleural Cavity, Percutaneous Approach (ICD-10-PCS; principal; 2021-03-01 15:36)
DX: K74.60 Unspecified cirrhosis of liver (principal); J90 Pleural effusion, not elsewhere classified; K76.6 Portal hypertension; J98.11 Atelectasis; D64.9 Anemia, unspecified; E78.5 Hyperlipidemia, unspecified; F10.10 Alcohol abuse, uncomplicated; F17.200 Nicotine dependence, unspecified, uncomplicated; F12.10 Cannabis abuse, uncomplicated; I73.9 Peripheral vascular disease, unspecified; F32.9 Major depressive disorder, single episode, unspecified; I10 Essential (primary) hypertension; K29.50 Unspecified chronic gastritis without bleeding; Z95.820 Peripheral vascular angioplasty status with implants and grafts; Z79.82 Long term (current) use of aspirin; Z79.02 Long term (current) use of antithrombotics/antiplatelets; Z79.899 Other long term (current) drug therapy

== ENCOUNTER 2021-03-16 12:14 | Inpatient (IN) | payer MEDICARE, OTHER ==
[~2021-03-16] VITALS: Ht 185.4 cm; Wt 70.0 kg
[~2021-03-16 12:14] MED LIST changes: +ALDA25TA2 PO; +ASPI81CH33 PO; +CLOP75TA2 PO; +FERR325T81 PO; +TORS10TA3 PO
--- NOTE | 2021-03-16 13:25 | REP ---
INDICATION: CHEST PAIN. COMPARISON: 03/03/2021. TECHNIQUE: Single portable AP view of the chest was performed. FINDINGS: There is no pneumothorax. There are stable mild increased interstitial markings in the lung bases as well as blunting of the costophrenic angles. The heart is not enlarged. The mediastinal silhouette is unchanged. IMPRESSION: Accentuation of bibasilar interstitial markings with blunting of the costophrenic angles, stable compared to prior study. No new findings. No pneumothorax. <Electronically signed by Danny Álvarez > 03/16/21 1320
[2021-03-16 13:39] LABS: BASO # 0.1 10^3/uL (0.0-0.2); BASO % 0.6 % (0.0-1.0); EOS # 0.5 10^3/uL (0.0-0.5); EOS % 2.4 % (0.0-3.0); HEMATOCRIT 22.6 % (42.0-52.0); LYMPH # 1.8 10^3/uL (1.5-5.0); LYMPH % 8.9 % (24.0-44.0); MEAN CORPUSCULAR HEMOGLOBIN 28.6 pg (27.0-33.0); MEAN CORPUSCULAR VOLUME 92.2 fl (80.0-96.0); MONO # 2.3 10^3/uL (0.0-0.8); MONO % 11.5 % (2.0-8.0); NEUTROPHILS # 14.9 10^3/uL (1.5-8.5); NEUTROPHILS % 74.2 % (36.0-66.0); PLATELET COUNT, AUTOMATED 149 10^3/uL (150-450); RED BLOOD COUNT 2.45 10^6/uL (4.30-6.10)
[2021-03-16 14:07] LABS: WHITE BLOOD COUNT 20.2 10^3/uL (4.0-10.0)
[2021-03-16 14:26] LABS: ALBUMIN 1.9 GM/DL (3.2-5.2); ALT/SGPT 28 U/L (12-78); BILIRUBIN,DIRECT 0.4 MG/DL (0.0-0.2); BILIRUBIN,TOTAL 0.8 MG/DL (0.2-1.0); BLOOD UREA NITROGEN 22 MG/DL (7-18); CALCIUM LEVEL 8.5 MG/DL (8.8-10.2); CARBON DIOXIDE LEVEL 27 MEQ/L (21-32); CHLORIDE LEVEL 105 MEQ/L (98-107); CK-MB VALUE MASS 1.7 NG/ML (<3.6); CPK CREATINE PHOSPHOKINASE 56 U/L (39-308); GLOMERULAR FILTRATION RATE > 60.0 (>49); GLUCOSE, FASTING 123 MG/DL (70-100); IRON (FE) 170 UG/DL (65-175); LIPASE 186 U/L (73-393); MB/CK RELATIVE INDEX 3.04 (< OR =4); NT-PRO BNP 54 PG/ML (<125); PERCENT SATURATION 60.3 % (19.7-50.0); POTASSIUM SERUM 3.9 MEQ/L (3.5-5.1); SODIUM LEVEL 138 MEQ/L (136-145); TOTAL IRON BINDING CAPACITY 282 UG/DL (250-450); TOTAL PROTEIN 6.3 GM/DL (6.4-8.2); TROPONIN I < 0.02 NG/ML (< 0.10)
[2021-03-16] MEDS ORDERED: ISOVUE-370 76% 100ML VIAL As Ordered ONE (15:29)
[2021-03-16 15:54] LABS: INR 1.43; PROTHROMBIN TIME 17.9 SECONDS (12.7-14.5)
[2021-03-16] MEDS ORDERED: FERR1TAB8 PO (15:54)
[2021-03-16] MEDS ORDERED: TORS10TA3 PO (15:54)
[2021-03-16] MEDS ORDERED: SPIR-10 PO (15:54)
[2021-03-16 15:55] LABS: PARTIAL THROMBOPLASTIN TIME 34.8 SECONDS (25.9-37.0)
[2021-03-16] MEDS ORDERED: NS 1,000 ML IV SCH (15:55)
[2021-03-16] MEDS ORDERED: HOME MED LIST COMPLETE! XX SCH (15:55)
[2021-03-16 16:03] LABS: FERRITIN 143 NG/ML (26-388); LDH LACTATE DEHYDROGENASE 242 U/L (87-241)
--- NOTE | 2021-03-16 16:10 | REP ---
INDICATION: abdominal pain with rectal bleeding. COMPARISON: Comparison CT study March 01, 2021. TECHNIQUE: Helical scanning was acquired and 4 mm axial images are re-formatted. Coronal and sagittal MPR images were generated and reviewed. The contrast enhancement dose is 100 mL of intravenous Isovue 370. FINDINGS: Preliminary digital roll form operator radiograph shows an unremarkable bowel gas pattern. There is a small to moderate right pleural effusion again noted unchanged from the comparison study. There is minimal upper abdominal ascites. Minimal ascitic fluid is seen in the right lower quadrant pericolic gutter. There are portal venous collaterals noted in the upper abdomen anteriorly in the anterior abdominal wall as well as along the course of the umbilical vein which is recannulated. There is a macro nodular liver contour. The right lobe is relatively small in the left lobe is somewhat hypertrophied consistent with cirrhosis. The spleen does not appear to be enlarged. These findings are unchanged. No pancreatic abnormality is seen. No adrenal lesion is observed. Kidneys enhance symmetrically and are morphologically intact. There are calcified gallstones in the gallbladder lumen unchanged. Vascular calcification is noted extensively in the abdominal aorta. There is heavy vascular calcification of the iliac arteries bilaterally in the left common iliac artery is occluded. The left external iliac artery is occluded as well. The patient has a patent right to left fem-fem crossover graft. Large and small bowel loops are unremarkable in the abdomen and pelvis except for left colonic diverticulosis without CT evidence of diverticulitis. Prostate and urinary bladder are unremarkable. The appendix is not clearly identified but no inflammatory changes are seen to suggest appendicitis. Bone window settings show no bony destructive lesion. No abdominal wall defect is observed. IMPRESSION: Evidence of cirrhosis or portal hypertension. Minimal upper abdominal ascites. Moderate right pleural effusion. Left colonic diverticulosis. Cholelithiasis. 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 <Electronically signed by Gui Odonnell > 03/16/21 [id number]
[2021-03-16 16:17] LABS: RSV AMPLIFICATION NEGATIVE (NEGATIVE)
--- NOTE | 2021-03-16 16:29 | HPEPDOC ---
General Date of Admission March 16, 2021 Date of Service: Mar 16, 2021 Chief Complaint The patient is a 65-year-old male admitted with a reason for visit of Gen Weakness. Source: Patient History of Present Illness Mr. Cesar is a 65-year-old male with medical blastic anemia and megakaryocytic aplasia who presents with general weakness and found to have acute anemia. Easton landis was recently admitted from 03/01/2021 to 03/03/2021 for dyspnea secondary to anemia and pleural effusion. Patient was given a unit of blood and the pleural effusion was drained. On discharge he was feeling better and is doing okay. About a week ago he started to feel weak and short of breath on exertion. He also started to notice that his stools were dark. Denies abdominal pain, nausea, or diarrhea. It progressively worsened until today when he decided to come to the ED for evaluation. Work-up in the ED is significant for hemoglobin of 7 and a white blood count of 20. Otherwise INR elevated at 1.43. ED provider performed a rectal exam and melena was produced. Patient consented for blood and will be receiving blood here. Patient will be admitted for acute symptomatic anemia secondary to suspected upper GI bleed. Home Medications Scheduled Aspirin (Aspirin) 81 Mg Tab.chew, 81 MG PO DAILY, (Reported) Atorvastatin Calcium (Atorvastatin Calcium) 20 Mg Tablet, 20 MG PO DAILY, (Reported) Clopidogrel Bisulfate (Clopidogrel) 75 Mg Tablet, 75 MG PO DAILY, (Reported) Ferrous Sulfate (Ferrous Sulfate) 325 Mg Tablet, 325 MG PO BID, (Reported) Gabapentin (Gabapentin) 300 Mg Capsule, 300 MG PO BID, (Reported) Multivitamin with Folic Acid (Tab-A-Martha Tablet) 400 Mcg Tablet, 1 TAB PO DAILY, (Reported) Spironolactone (Spironolactone) 25 Mg Tablet, 25 MG PO DAILY, (Reported) Torsemide (Torsemide) 10 Mg Tablet, 10 MG PO DAILY, (Reported) Scheduled PRN Docusate Sodium (Colace) 100 Mg Capsule, 100 MG PO BID PRN for CONSTIPATION, (Reported) Allergies Coded Allergies: No Known Allergies (Unverified , 11/28/16) Past Medical History Medical History 1. Alcohol use disorder 2. Liver cirrhosis 3. Hypertension 4. Hyperlipidemia 5. Megaloblastic anemia 6. Depression 7. Chronic gastritis 8. Megakaryocytic aplasia Surgical History 1. Left femoral artery bypass 2. Vasectomy 3. Angioplasty Family History Noncontributory Social History * Smoker: current smoker Alcohol: sober (Quit drinking 10 days ago) Drugs: marijuana (Marijuana to help with appetite) A-FIB/CHADSVASC A-FIB History Current/History of A-Fib/PAF?: No Review of Systems Constitutional: Denies: Chills, Fever Eyes: Reports: Other (Reports having floaters) ENT: Denies: Sore Throat Skin: Denies: Rash Pulmonary: Reports: Dyspnea, Cough (Dry) Cardiovascular: Denies: Chest Pain Gastrointestinal: Reports: Melena; Denies: Abdominal Pain Genitourinary: Denies: Dysuria Hematologic: Denies: Bruising Neurological: Denies: Numbness Psych: Reports: Depression Physical Examination General Exam: Positive: Alert, Cooperative Eye Exam: Positive: EOMI; Negative: Sclera icteric ENT Exam: Positive: Atraumatic Neck Exam: Positive: Supple Chest Exam: Positive: Clear to auscultation Heart Exam: Positive: Tachycardic, Regular Rhythm Abdomen Exam: Positive: Normal bowel sounds, Soft; Negative: Tenderness Extremity Exam: Negative: Edema Neuro Exam: Positive: Normal Speech Psych Exam: Positive: Mental status NL Vital Signs Vital Signs Date Time Temp Pulse Resp B/P (MAP) Pulse Ox O2 Delivery O2 Flow Rate FiO2 03/16/21 12:35 98.1 107 16 121/65 (83) 100 Room Air Laboratory Data Labs 24H Laboratory Tests 2 03/16/21 13:29: Immature Granulocyte % (Auto) 2.4, Neutrophils (%) (Auto) 74.2H, Lymphocytes (%) (Auto) 8.9L, Monocytes (%) (Auto) 11.5H, Eosinophils (%) (Auto) 2.4, Basophils (%) (Auto) 0.6, Neutrophils # (Auto) 14.9H, Lymphocytes # (Auto) 1.8, Monocytes # (Auto) 2.3H, Eosinophils # (Auto) 0.5, Basophils # (Auto) 0.1, Nucleated Red Blood Cells % (auto) 0.1H, Anion Gap 6L, Glomerular Filtration Rate > 60.0, Calcium Level 8.5L, Iron Level 170, Total Iron Binding Capacity 282, Transferrin % Saturation 60.3H, Total Bilirubin 0.8, Direct Bilirubin 0.4H, Aspartate Amino Transf (AST/SGOT) 60H, Alanine Aminotransferase (ALT/SGPT) 28, Alkaline Phosp hatase 158H, Total Creatine Kinase 56, Creatine Kinase MB 1.7, Creatine Kinase MB Relative Index 3.04, Troponin I < 0.02, YI-Lhx-V-Type Natriuretic Peptide 54, Total Protein 6.3L, Albumin 1.9L, Albumin/Globulin Ratio 0.4, Lipase 186, Thyroid Stimulating Hormone (TSH) 1.280 03/16/21 15:26: Reticulocyte # (auto) 284.0H, Differential Slide Review Report, Peripheral Blood Smear Path Consult PERIPHERAL SMEAR, Percent Reticulocyte Count 11.6H, Reticulocyte Hemoglobin Equivalent 41.6H, Prothrombin Time 17.9H, Prothromb Time International Ratio 1.43, Activated Partial Thromboplast Time 34.8 CBC/BMP Laboratory Tests 03/16/21 13:29 Assessment/Plan Mr. Cesar is a 65-year-old male with medical blastic anemia and megakaryocytic aplasia who presents with general weakness and found to have acute anemia. Patient reports melena and guaiac stool positive. Iron and ferritin are within normal. Total bilirubin within normal, unlikely to be hemolysis. Reticulocyte index is calculated to be 3.12 indicating that the response is appropriate. Patient may be having an acute GI bleed. Otherwise patient's anemia symptomatic as patient has dyspnea on exertion and fatigue. Patient be transfused 2 units of blood. Plan / VTE VTE Prophylaxis Ordered?: Yes Plan Plan 1. Acute symptomatic upper GI bleed Patient has melena Iron and ferritin are within normal. Reticulocyte response is adequate Patient reports having darker than normal stool and ER provider reports patient's guaiac is grossly positive for melena Transfused 2 units of blood We will continue aspirin but hold Plavix Continue iron 2. Leukocytosis Patient denies taking prednisone or steroids. No fevers No obvious etiology Obtain peripheral smear Trend CBCs No obvious infectious source, may be reactive to bleed 3. Peripheral vascular disease status post graft Continue aspirin hold Plavix Continue atorvastatin 4. Cirrhosis Likely secondary to alcohol use Continue spironolactone and torsemide 5. Alcohol use disorder Patient reported alcohol cessation about 10 days ago 6. DVT prophylaxis Due to suspected upper GI bleed no chemical prophylaxis SCDs and teds Disposition: Pending clinical improvement HEIDE NATH DO Mar 16, 2021 16:29
[2021-03-16 17:21] VITALS: BP 113/69
[2021-03-16 17:31] VITALS: BP 102/68
[2021-03-16 18:14] VITALS: BP 116/66
--- NOTE | 2021-03-16 20:59 | CR ---
CONSULTATION DATE: 03/16/2021 REASON FOR CONSULT: Anemia. HISTORY OF PRESENT ILLNESS: The patient is a 65-year-old male who was recently discharged from the hospital with shortness of breath, pleural effusion, has some weakness and lethargy with increasing shortness of breath and came into the emergency room for some melanotic stools and anemia of a hemoglobin of 7. He has melanotic stool on exam and I was asked to see him for GI bleed, probable upper GI. The patient has a known history of cirrhosis, alcohol abuse, history of hypertension, hyperlipidemia, megaloblastic anemia, depression, chronic gastritis, megakaryocytic aplasia, left femoral to femoral artery bypass, a vasectomy, angioplasty. MEDICATIONS: 1. Aspirin. 2. Atorvastatin. 3. Plavix. 4. Iron. 5. Gabapentin. 6. Multivitamins. 7. Spironolactone. 8. Torsemide. PHYSICAL EXAMINATION: GENERAL: Reveals a 65-year-old, frail male who looks much older than stated age. HEENT: Unremarkable. LUNGS: Diminished bilaterally with a few crackles at the bases. HEART: Regular. ABDOMEN: Reveals a significant varicosity in the upper abdomen, not true caput medusae but definitely probable some evidence of portal hypertension. Abdomen is soft, nondistended, nontender and he has good pulses bilaterally in his femoral area. IMPRESSION AND PLAN: The patient has anemia with cirrhosis. His CT scan shows evidence of some ascites. He has an albumin of 1.9 and he has some of a pleural effusion. At this time, most likely diagnosis is gastritis causing this abnormality easily could be esophageal varices given his evidence of portal hypertension. In general obviously I am not a dry cleaning checker and I am not a dry cleaning checker and I do not perform esophageal varices banding. I can perform a diagnostic upper endoscopy for you and we will schedule that tomorrow. However, if he has any of the concerning abnormalities such as varices, etc which I have a high/significant suspicion that this is the case that this will need to be addressed by gastroenterology. Although he is not significantly short of breath at this time, he has a significant pleural effusion and may need to be diuresed more significantly. In addition, I would recommend that he be aggressively treated with proton pump inhibitors, Carafate and obviously Octreotide if we notice a significant drop in his hematocrit overnight.
[2021-03-16 21:04] VITALS: BP 136/64
[2021-03-16 23:21] VITALS: BP 112/67
[2021-03-16] MEDS: PANTOPRAZOLE 40MG VIAL (C9113 PER 1) IV SCH (23:21)
[2021-03-16] MEDS: SUCRALFATE 1 GM TAB PO SCH (23:24)
[2021-03-16] MEDS: DOCUSATE SODIUM 100MG CAPSULE PO PRN (23:25)
[2021-03-16] MEDS: FERROUS SULFATE 325MG TAB PO SCH (23:25)
[2021-03-16] MEDS: GABAPENTIN 300 MG CAP PO SCH (23:25)
[2021-03-16 23:36] VITALS: BP 112/66
[2021-03-17] VITALS (11 sets, daily range): BP systolic 108–125; BP diastolic 55–69
[2021-03-17 02:27] LABS: HEMATOCRIT 28.5 % (42.0-52.0); MEAN CORPUSCULAR HEMOGLOBIN 29.9 pg (27.0-33.0); MEAN CORPUSCULAR HGB CONC 32.3 g/dl (32.0-36.5); MEAN CORPUSCULAR VOLUME 92.5 fl (80.0-96.0); PLATELET COUNT, AUTOMATED 112 10^3/uL (150-450); RED BLOOD COUNT 3.08 10^6/uL (4.30-6.10); WHITE BLOOD COUNT 12.7 10^3/uL (4.0-10.0)
[2021-03-17 02:38] LABS: HEMOGLOBIN 9.2 g/dl (13.5-17.5)
--- NOTE | 2021-03-17 06:04 | ECGEPIP ---
[facility] - ED Test Date: 2021-03-16 Pat Name: CONI ZAMORA Department: Room: - Gender: Male Folder Taper Operator: : 1955 Requested By: FRANCISCO GIRARD Order Number: [id number] Reading MD: Maik Lorenzana Measurements Intervals [place] Rate: 99 P: 55 MT: 126 QRS: -25 QRSD: 90 T: 81 QT: 378 QTc: 485 Interpretive Statements Sinus rhythm with marked sinus arrhythmia NSTTW ABNORMALITY(S) Prolonged QT SIMILAR TO 03/01/21 Electronically Signed on 03-17-2021 6:04:27 EDT by Maik Lorenzana
[2021-03-17] MEDS: SUCRALFATE 1 GM TAB PO SCH ×4 (07:30→20:23)
[2021-03-17 08:06] LABS: HEMOGLOBIN 9.8 g/dl (13.5-17.5); MEAN CORPUSCULAR HEMOGLOBIN 29.1 pg (27.0-33.0); MEAN CORPUSCULAR HGB CONC 31.6 g/dl (32.0-36.5); PLATELET COUNT, AUTOMATED 136 10^3/uL (150-450); RED BLOOD COUNT 3.37 10^6/uL (4.30-6.10); WHITE BLOOD COUNT 11.4 10^3/uL (4.0-10.0)
[2021-03-17 08:26] LABS: BLOOD UREA NITROGEN 20 MG/DL (7-18); CALCIUM LEVEL 8.5 MG/DL (8.8-10.2); CARBON DIOXIDE LEVEL 26 MEQ/L (21-32); CHLORIDE LEVEL 105 MEQ/L (98-107); GLOMERULAR FILTRATION RATE > 60.0 (>49); GLUCOSE, FASTING 93 MG/DL (70-100); POTASSIUM SERUM 3.9 MEQ/L (3.5-5.1); SODIUM LEVEL 138 MEQ/L (136-145)
[2021-03-17] MEDS: PANTOPRAZOLE 40MG VIAL (C9113 PER 1) IV SCH ×2 (08:55→20:23)
[2021-03-17] MEDS: ATORVASTATIN 20 MG TAB PO SCH (08:56)
[2021-03-17] MEDS: THIAMINE 100 MG TAB PO SCH (08:57)
[2021-03-17] MEDS: MULTIVITAMINS/MINERALS THERAP 1 TAB PO SCH (08:57)
[2021-03-17] MEDS: ASPIRIN 81 MG CHEW TABLET PO SCH (08:57)
[2021-03-17] MEDS: FOLIC ACID 1 MG TAB PO SCH (08:57)
[2021-03-17] MEDS: FERROUS SULFATE 325MG TAB PO SCH ×2 (08:57→20:23)
[2021-03-17] MEDS: GABAPENTIN 300 MG CAP PO SCH ×2 (08:57→20:23)
[2021-03-17] MEDS: TORSEMIDE 10 MG TABLET PO SCH (08:57)
[2021-03-17] MEDS: SPIRONOLACTONE 25 MG TAB PO SCH (08:58)
[2021-03-17] MEDS ORDERED: FLUBLOK(EGG FREE)(QUAD)INFLUENZA VACC 0.5ML SYRINGE 18YRS & OLDER IM ONE (09:00)
--- NOTE | 2021-03-17 12:48 | IPNPDOC ---
Subjective Date Seen The patient was seen on 03/17/21. Subjective Chief Complaint/HPI Mr. Cesar is a 65-year-old male with alcoholic cirrhosis who presents with general weakness and found to have acute anemia. Last night, he was given 2u of pRBC and responded appropriately. This morning, he denies any chest pain or dyspnea. He feels better with the 2u of pRBC. He tells me he had another bowel movement with black stool. Plan for patient to have EGD today. Objective Physical Examination General Exam: Positive: Alert, Cooperative Eye Exam: Positive: EOMI; Negative: Sclera icteric ENT Exam: Positive: Atraumatic Neck Exam: Positive: Supple Chest Exam: Positive: Clear to auscultation Heart Exam: Positive: Rate Normal, Regular Rhythm Abdomen Exam: Positive: Normal bowel sounds, Soft; Negative: Tenderness Extremity Exam: Negative: Edema Neuro Exam: Positive: Normal Speech Psych Exam: Positive: Mental status NL Assessment /Plan Assessment Mr. Cesar is a 65-year-old male with alcoholic cirrhosis who presents with general weakness and found to have acute anemia. Patient reports melena and guaiac stool positive. Iron and ferritin are within normal. Total bilirubin within normal, unlikely to be hemolysis. Reticulocyte index is calculated to be 3.12 indicating that the response is appropriate. Patient likely having upper GI bleed. General surgery consulted for EGD. Recommendations appreciated. Otherwise, patient was given 2 units of blood, and he responded appropriately. He is feeling better after the transfusion. Plan/VTE VTE Prophylaxis Ordered?: Yes Plan 1. Acute symptomatic upper GI bleed Patient has melena Transfused 2 units of blood. H&H responded appropriately. Patient feeling better after transfusion We will continue aspirin but hold Plavix Continue iron General surgery consulted for EGD. Recommendations appreciated Given patient's history of cirrhosis, will start patient on ceftriaxone for SBP prophylaxis 2. Leukocytosis Unclear etiology, but resolving on own without antibiotics Peripheral smear suggests acute inflammatory process Trend CBCs 3. Peripheral vascular disease status post graft Continue aspirin hold Plavix Continue atorvastatin 4. Cirrhosis Likely secondary to alcohol use Continue spironolactone and torsemide 5. Alcohol use disorder Patient reported alcohol cessation about 10 days ago 6. DVT prophylaxis Due to suspected upper GI bleed no chemical prophylaxis SCDs and teds Disposition: Pending EGD and clinical improvement VS, I&O, 24H, Fishbone Vital Signs/I&O Vital Signs Date Time Temp Pulse Resp B/P (MAP) Pulse Ox O2 Delivery O2 Flow Rate FiO2 03/17/21 06:00 98.5 85 18 108/63 (78) 96 Room Air I&O- Last 24 Hours up to 6 AM 03/17/21 06:00 Intake Total 800 ml Output Total 375 ml Balance 425 ml Laboratory Data 24H LABS Laboratory Tests 2 03/16/21 13:29: Immature Granulocyte % (Auto) 2.4, Neutrophils (%) (Auto) 74.2H, Lymphocytes (%) (Auto) 8.9L, Monocytes (%) (Auto) 11.5H, Eosinophils (%) (Auto) 2.4, Basophils (%) (Auto) 0.6, Neutrophils # (Auto) 14.9H, Lymphocytes # (Auto) 1.8, Monocytes # (Auto) 2.3H, Eosinophils # (Auto) 0.5, Basophils # (Auto) 0.1, Nucleated Red Blood Cells % (auto) 0.1H, Anion Gap 6L, Glomerular Filtration Rate > 60.0, Calcium Level 8.5L, Iron Level 170, Total Iron Binding Capacity 282, Transferrin % Saturation 60.3H, Total Bilirubin 0.8, Direct Bilirubin 0.4H, Aspartate Amino Transf (AST/SGOT) 60H, Alanine Aminotransferase (ALT/SGPT) 28, Alkaline Phosphatase 158H, Total Creatine Kinase 56, Creatine Kinase MB 1.7, Creatine Kinase MB Relative Index 3.04, Troponin I < 0.02, CL-Zwv-[id number]-Type Natriuretic Peptide 54, Total Protein 6.3L, Albumin 1.9L, Albumin/Globulin Ratio 0.4, Lipase 186, Thyroid Stimulating Hormone (TSH) 1.280 03/16/21 15:26: Reticulocyte # (auto) 284.0H, Differential Slide Review Report, Peripheral Blood Smear Path Consult PERIPHERAL SMEAR, Percent Reticulocyte Count 11.6H, Reticulocyte Hemoglobin Equivalent 41.6H, Prothrombin Time 17.9H, Prothromb Time International Ratio 1.43, Activated Partial Thromboplast Time 34.8, Ferritin 143, Lactate Dehydrogenase 242H, Coronavirus (COVID-19)(PCR) NEGATIVE, Influenza Type A (RT-PCR) NEGATIVE, Influenza Type B (RT-PCR) NEGATIVE, Respiratory Syncytial Virus (PCR) NEGATIVE 03/17/21 02:20: Nucleated Red Blood Cells % (auto) 0.2H 9/9/21 07:35: Nucleated Red Blood Cells % (auto) 0.2H, Anion Gap 7L, Glomerular Filtration Rate > 60.0, Calcium Level 8.5L 03/17/21 11:16: Lab Scanned Report Transfusion Record CBC/BMP Laboratory Tests 03/16/21 13:29 03/17/21 02:20 03/17/21 07:35 Microbiology Microbiology 03/17/21 Blood Culture, Received Pending 03/17/21 Blood Culture, Received Pending HEIDE NATH DO Mar 17, 2021 12:48
[2021-03-17] MEDS ORDERED: propofoL 200 MG/20 ML VIAL As Ordered ONE (13:56)
[2021-03-17] MEDS ORDERED: LIDOCAINE 2% 100MG/5ML SDV (FOR ANES.) As Ordered ONE (13:56)
[2021-03-17] MEDS ORDERED: fentaNYL 100 MCG/2 ML INJECTION (J3010) As Ordered ONE (13:57)
[2021-03-17] MEDS ORDERED: cefTRIAXone SOD 1 GM in D5W MINI-BAG PLUS 50 ML IV SCH (14:00)
--- NOTE | 2021-03-17 15:18 | ROOR ---
Patient Name: Reji Cesar Procedure Date: 03/17/2021 2:59 PM Date of : 1955 Age: 65 Room: [facility] Gender: Male Note Status: Finalized Procedure: Upper GI endoscopy Indications: Iron deficiency anemia, Melena Providers: Simon Sommers Jr, MD Referring MD: Adilson Russo MD Requesting Provider: Medicines: Propofol per Anesthesia Complications: No immediate complications. Procedure: Pre-Anesthesia Assessment: - Prior to the procedure, a History and Physical was performed, and patient medications and allergies were reviewed. The patient is competent. The risks and benefits of the procedure and the sedation options and risks were discussed with the patient. All questions were answered and informed consent was obtained. Patient identification and proposed procedure were verified by the physician and the nurse in the pre-procedure area and in the procedure room. Mental Status Examination: alert and oriented. Airway Examination: normal oropharyngeal airway and neck mobility. Respiratory Examination: clear to auscultation. CV Examination: normal. ASA Grade Assessment: III - A patient with severe systemic disease. After reviewing the risks and benefits, the patient was deemed in satisfactory condition to undergo the procedure. The anesthesia plan was to use moderate sedation / analgesia (conscious sedation). Immediately prior to administration of medications, the patient was re-assessed for adequacy to receive sedatives. The heart rate, respiratory rate, oxygen saturations, blood pressure, adequacy of pulmonary ventilation, and response to care were monitored throughout the procedure. The physical status of the patient was re-assessed after the procedure. The Endoscope was introduced through the mouth, and advanced to the second part of duodenum. The upper GI endoscopy was accomplished without difficulty. The patient tolerated the procedure well. Findings: The upper third of the esophagus, middle third of the esophagus and lower third of the esophagus were normal. Diffuse severe inflammation characterized by congestion (edema), erythema, friability and granularity was found in the cardia and in the gastric body. The prepyloric region of the stomach and pylorus were normal. The duodenal bulb, first portion of the duodenum and second portion of the duodenum were normal. Varices with no bleeding were found in the cardia, in the gastric fundus and in the gastric body. There were no stigmata of recent bleeding. Impression: - Normal upper third of esophagus, middle third of esophagus and lower third of esophagus. - Gastritis. - Normal prepyloric region of the stomach and pylorus. - Normal duodenal bulb, first portion of the duodenum and second portion of the duodenum. - Gastric varices, without bleeding. - No specimens collected. Recommendation: - Return patient to hospital hall for ongoing care. - Refer to a cash posting specialist as previously scheduled. Procedure Code(s): --- Professional --- 52848, Esophagogastroduodenoscopy, flexible, transoral; diagnostic, including collection of specimen(s) by brushing or washing, when performed (separate procedure) Diagnosis Code(s): --- Professional --- K29.70, Gastritis, unspecified, without bleeding I86.4, Gastric varices D50.9, Iron deficiency anemia, unspecified K92.1, Melena (includes Hematochezia) CPT copyright 2019 [employer]. All rights reserved. The codes documented in this report are preliminary and upon motor winder review may be revised to meet current compliance requirements. Simon Sommers MD Simon Sommers Jr, MD 03/17/2021 3:17:42 PM Electronically signed by Simon Sommers Jr, MD Number of Addenda: 0 Note Initiated On: 03/17/2021 2:59 PM Estimated Blood Loss: Estimated blood loss: none.
[2021-03-18] VITALS (11 sets, daily range): BP systolic 80–125; BP diastolic 50–67
[2021-03-18] MEDS ORDERED: NS 500 ML IV ONE (02:50)
[2021-03-18 03:12] LABS: HEMATOCRIT 28.6 % (42.0-52.0); HEMOGLOBIN 9.2 g/dl (13.5-17.5); MEAN CORPUSCULAR HEMOGLOBIN 30.6 pg (27.0-33.0); MEAN CORPUSCULAR HGB CONC 32.2 g/dl (32.0-36.5); PLATELET COUNT, AUTOMATED 120 10^3/uL (150-450); RED BLOOD COUNT 3.01 10^6/uL (4.30-6.10); WHITE BLOOD COUNT 9.3 10^3/uL (4.0-10.0)
[2021-03-18 03:37] LABS: CALCIUM LEVEL 7.9 MG/DL (8.8-10.2); CREATININE FOR GFR 1.34 MG/DL (0.70-1.30); POTASSIUM SERUM 3.7 MEQ/L (3.5-5.1)
[2021-03-18] MEDS: FOLIC ACID 1 MG TAB PO SCH (08:40)
[2021-03-18] MEDS: PANTOPRAZOLE 40MG VIAL (C9113 PER 1) IV SCH ×2 (08:40→20:19)
[2021-03-18] MEDS: FERROUS SULFATE 325MG TAB PO SCH ×2 (08:40→20:19)
[2021-03-18] MEDS: THIAMINE 100 MG TAB PO SCH (08:40)
[2021-03-18] MEDS: ASPIRIN 81 MG CHEW TABLET PO SCH (08:40)
[2021-03-18] MEDS: GABAPENTIN 300 MG CAP PO SCH ×2 (08:40→20:19)
[2021-03-18] MEDS: ATORVASTATIN 20 MG TAB PO SCH (08:40)
[2021-03-18] MEDS: SUCRALFATE 1 GM TAB PO SCH ×4 (08:40→20:18)
[2021-03-18] MEDS: MULTIVITAMINS/MINERALS THERAP 1 TAB PO SCH (08:40)
[2021-03-18] MEDS: SPIRONOLACTONE 25 MG TAB PO SCH (08:43)
[2021-03-18] MEDS: TORSEMIDE 10 MG TABLET PO SCH (08:43)
--- NOTE | 2021-03-18 13:27 | IPNPDOC ---
Subjective Date Seen The patient was seen on 03/18/21. Subjective Chief Complaint/HPI Mr. Cesar is a 65-year-old male with alcoholic cirrhosis who presents with general weakness and found to have acute anemia. Yesterday, patient had an EGD. Demonstrated non-bleeding varices and gastritis without bleeding. No obvious sign of bleed. Overnight his blood pressure did drop, he is currently getting albumin for his low blood pressure. Otherwise, he denies any hematochezia. Stools are dark, most likely secondary to iron. Denies any chest pain or shortness of breath. Objective Physical Examination General Exam: Positive: Alert, Cooperative Eye Exam: Positive: EOMI; Negative: Sclera icteric ENT Exam: Positive: Atraumatic Neck Exam: Positive: Supple Chest Exam: Positive: Clear to auscultation Heart Exam: Positive: Rate Normal, Regular Rhythm Abdomen Exam: Positive: Normal bowel sounds, Soft; Negative: Tenderness Extremity Exam: Negative: Edema Neuro Exam: Positive: Normal Speech Psych Exam: Positive: Mental status NL Assessment /Plan Assessment Mr. Cesar is a 65-year-old male with alcoholic cirrhosis who presents with general weakness and found to have acute anemia. Patient reports melena and guaiac stool positive. Iron and ferritin are within normal. Total bilirubin within normal, unlikely to be hemolysis. Reticulocyte index is calculated to be 3.12 indicating that the response is appropriate. Patient likely having upper GI bleed. General surgery consulted for EGD. EGD was performed on 03/17/2021. Demonstrated varices and gastritis. No obvious sign of bleeding. Otherwise, patient was given 2 units of blood, and he responded appropriately. He is feeling better after the transfusion. Plan/VTE VTE Prophylaxis Ordered?: Yes Plan 1. Acute symptomatic upper GI bleed Patient has melena Transfused 2 units of blood. H&H responded appropriately. Patient feeling bett er after transfusion We will continue aspirin but hold Plavix Continue iron General surgery consulted for EGD. Recommendations appreciated EGD demonstrated varices and gastritis. No obvious sign of bleeding 2. Leukocytosis Unclear etiology, but resolving on own without antibiotics Peripheral smear suggests acute inflammatory process Trend CBCs Resolved 3. Peripheral vascular disease status post graft Continue aspirin hold Plavix Continue atorvastatin 4. Cirrhosis Likely secondary to alcohol use Continue spironolactone and torsemide 5. Alcohol use disorder Patient reported alcohol cessation about 10 days ago Continue thiamine, folic acid, and multivitamin 6. Gastritis Continue Carafate and Protonix 7. DVT prophylaxis Due to suspected upper GI bleed no chemical prophylaxis SCDs and teds Disposition: Pending improvement in blood pressure and stability of H&H. Can consider discharge tomorrow if both are stable VS, I&O, 24H, Fishbone Vital Signs/I&O Vital Signs Date Time Temp Pulse Resp B/P (MAP) Pulse Ox O2 Delivery O2 Flow Rate FiO2 03/18/21 10:00 98.2 93 16 119/65 (83) 93 Room Air I&O- Last 24 Hours up to 6 AM 03/18/21 06:00 Intake Total 1610 ml Output Total 0 ml Balance 1610 ml Laboratory Data 24H LABS Laboratory Tests 2 03/18/21 03:02: Nucleated Red Blood Cells % (auto) 0.0, Anion Gap 8, Glomerular Filtration Rate 57.0, Calcium Level 7.9L CBC/BMP Laboratory Tests 03/18/21 03:02 Microbiology Microbiology 03/17/21 Blood Culture - Preliminary, Resulted No growth after 24 hours . All specim... 03/17/21 Blood Culture - Preliminary, Resulted No growth after 24 hours . All specim... HEIDE NATH DO Mar 18, 2021 13:27
[2021-03-18] MEDS: DOCUSATE SODIUM 100MG CAPSULE PO PRN (17:03)
[2021-03-19 06:49] LABS: HEMATOCRIT 27.4 % (42.0-52.0); HEMOGLOBIN 8.8 g/dl (13.5-17.5); MEAN CORPUSCULAR HGB CONC 32.1 g/dl (32.0-36.5); MEAN CORPUSCULAR VOLUME 93.5 fl (80.0-96.0); PLATELET COUNT, AUTOMATED 109 10^3/uL (150-450); RED BLOOD COUNT 2.93 10^6/uL (4.30-6.10); WHITE BLOOD COUNT 8.4 10^3/uL (4.0-10.0)
[2021-03-19 07:19] LABS: BLOOD UREA NITROGEN 14 MG/DL (7-18); CALCIUM LEVEL 7.8 MG/DL (8.8-10.2); CARBON DIOXIDE LEVEL 24 MEQ/L (21-32); CHLORIDE LEVEL 107 MEQ/L (98-107); CREATININE FOR GFR 0.95 MG/DL (0.70-1.30); GLOMERULAR FILTRATION RATE > 60.0 (>49); GLUCOSE, FASTING 102 MG/DL (70-100); POTASSIUM SERUM 3.5 MEQ/L (3.5-5.1); SODIUM LEVEL 137 MEQ/L (136-145)
[2021-03-19] MEDS: MULTIVITAMINS/MINERALS THERAP 1 TAB PO SCH (08:59)
[2021-03-19] MEDS: PANTOPRAZOLE 40MG VIAL (C9113 PER 1) IV SCH (08:59)
[2021-03-19] MEDS: TORSEMIDE 10 MG TABLET PO SCH (08:59)
[2021-03-19] MEDS: ASPIRIN 81 MG CHEW TABLET PO SCH (08:59)
[2021-03-19] MEDS: FERROUS SULFATE 325MG TAB PO SCH (09:00)
[2021-03-19] MEDS: ATORVASTATIN 20 MG TAB PO SCH (09:00)
[2021-03-19] MEDS: FOLIC ACID 1 MG TAB PO SCH (09:00)
[2021-03-19] MEDS: SUCRALFATE 1 GM TAB PO SCH (09:00)
[2021-03-19] MEDS: SPIRONOLACTONE 25 MG TAB PO SCH (09:00)
[2021-03-19] MEDS: GABAPENTIN 300 MG CAP PO SCH (09:00)
[2021-03-19] MEDS: THIAMINE 100 MG TAB PO SCH (09:00)
--- NOTE | 2021-03-19 19:00 | DS.PDOC ---
Discharge Summary General Date of Admission Mar 16, 2021 at 15:51 Date of Discharge Mar 19, 2021 Discharge Summary PROCEDURES PERFORMED DURING STAY: EGD by Dr. Sommers on 03/17/21 ADMITTING DIAGNOSES: 1. Acute symptomatic anemia, suspected upper GI bleed 2. Leukocytosis 3. Peripheral vascular disease status post graft 4. Cirrhosis 5. Alcohol use disorder DISCHARGE DIAGNOSES: 1. Acute symptomatic anemia, ruled out upper GI bleed 2. Leukocytosis 3. Peripheral vascular disease status post graft 4. Cirrhosis 5. Alcohol use disorder COMPLICATIONS/CHIEF COMPLAINT: Acute Anemia. HISTORY OF PRESENT ILLNESS: Mr. 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 Patient was recently admitted from 03/01/2021 to 03/03/2021 for dyspnea secondary to anemia and pleural effusion. Patient was given a unit of blood and the pleural effusion was drained. On discharge he was feeling better and is doing okay. About a week ago he started to feel weak and short of breath on exertion. He also started to notice that his stools were dark. Denies abdominal pain, nausea, or diarrhea. It progressively worsened until today when he decided to come to the ED for evaluation. Work-up in the ED is significant for hemoglobin of 7 and a white blood count of 20. Otherwise INR elevated at 1.43. ED provider performed a rectal exam and melena was produced. Patient consented for blood and will be receiving blood here. Patient will be admitted for acute symptomatic anemia secondary to suspected upper GI bleed. HOSPITAL COURSE: On admission, patient had a white blood count of 20. Peripheral smear suggested that the white blood count was reactive. I received a call from hematology/oncology and they tell me he did not have megaloblastic anemia or megakaryocytic aplasia. This diagnosis should be removed from patient's past medical history. Otherwise, patient received 2 units of blood and responded appropriately. General surgery was consulted for EGD as patient still had dark-colored stool. EGD was performed on 03/17/2021. Demonstrated varices and gastritis, but there is no signs of bleeding. Patient states stool may have been from iron. Patient's anemia may be related to his cirrhosis. After the EGD, patient had an episode of hypotension overnight. Night team had ordered albumin as patient was low on albumin. Patient's blood pressure responded to albumin. Today patient felt well and felt ready for home. Patient was discharged home. DISCHARGE MEDICATIONS: Please see below. ALLERGIES: Please see below. PHYSICAL EXAMINATION ON DISCHARGE: VITAL SIGNS: Please see below. GENERAL: Comfortable, in no apparent distress. HEENT: EOMI, sclera clear. NECK: Supple. RESPIRATORY: Lungs clear to auscultation bilaterally, no rales, wheeze or rhonchi. CARDIOVASCULAR: Regular rate and rhythm. ABDOMEN: Soft, nontender, no guarding or rebound tenderness. Normal bowel sounds. MUSCLE SKELETAL: Muscle strength 5/5 in all extremities. NEUROLOGICAL: CN 312 grossly intact, no focal deficits noted. PSYCHOLOGICAL: Normal mood and affect LABORATORY DATA: Please see below. IMAGING: Radiologist interpretation CT abdomen pelvis with IV contrast only Evidence of cirrhosis or portal hypertension. Minimal upper abdominal ascites. Moderate right pleural effusion. Left colonic diverticulosis. Cholelithiasis. 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 PROGNOSIS: Good ACTIVITY: As tolerated. DIET: As tolerated DISCHARGE PLAN: Home DISPOSITION: Home, Self-Care. DISCHARGE INSTRUCTIONS: 1. Follow-up with your PCP within 1 week ITEMS TO FOLLOWUP ON ON OUTPATIENT: 1. Monitor H&H 2. Recommend outpatient colonoscopy DISCHARGE CONDITION: Stable. Total time spent discharge planning, discharge summary, and medication reconciliation: 45 minutes Vital Signs/I&Os Vital Signs Date Time Temp Pulse Resp B/P (MAP) Pulse Ox O2 Delivery O2 Flow Rate FiO2 03/18/21 22:00 98.9 92 16 117/67 (84) 96 Room Air I&O- Last 24 Hours up to 6 AM 03/19/21 06:00 Intake Total 1140 ml Output Total 200 ml Balance 940 ml Laboratory Data Labs 24H Laboratory Tests 2 03/19/21 06:17: Nucleated Red Blood Cells % (auto) 0.0, Anion Gap 6L, Glomerular Filtration Rate > 60.0, Calcium Level 7.8L CBC/BMP Laboratory Tests 03/19/21 06:17 Microbiology Microbiology 03/17/21 Blood Culture - Preliminary, Resulted No Growth after 48 hours. All Specime... 03/17/21 Blood Culture - Preliminary, Resulted No Growth after 48 hours. All Specime... Discharge Medications Scheduled Aspirin (Aspirin) 81 Mg Tab.chew, 81 MG PO DAILY, (Reported) Atorvastatin Calcium (Atorvastatin Calcium) 20 Mg Tablet, 20 MG PO DAILY, (Reported) Clopidogrel Bisulfate (Clopidogrel) 75 Mg Tablet, 75 MG PO DAILY, (Reported) Ferrous Sulfate (Ferrous Sulfate) 325 Mg Tablet, 325 MG PO BID, (Reported) Gabapentin (Gabapentin) 300 Mg Capsule, 300 MG PO BID, (Reported) Multivitamin with Folic Acid (Tab-A-Martha Tablet) 400 Mcg Tablet, 1 TAB PO DAILY, (Reported) Spironolactone (Spironolactone) 25 Mg Tablet, 25 MG PO DAILY, (Reported) Torsemide (Torsemide) 10 Mg Tablet, 10 MG PO DAILY, (Reported) Scheduled PRN Docusate Sodium (Colace) 100 Mg Capsule, 100 MG PO BID PRN for CONSTIPATION, (Reported) Allergies Coded Allergies: No Known Allergies (Unverified , 11/28/16) HEIDE NATH DO Mar 19, 2021 19:00
[2021-03-21 08:17] VITALS: BP 133/74
== END 2021-03-19 10:48 | disposition home or self-care (01) | DRG 812 ==
LOC: M ED 12:14 → EDBD 12:14 → M ED INP 15:51 → M MSPAV 21:04
PROVIDERS: ADMIT Internal Medicine; ATTEND Internal Medicine
PROC: 30233N1 Transfusion of Nonautologous Red Blood Cells into Peripheral Vein, Percutaneous Approach (ICD-10-PCS; 2021-03-16)
PROC: 0DJ08ZZ Inspection of Upper Intestinal Tract, Via Natural or Artificial Opening Endoscopic (ICD-10-PCS; principal; 2021-03-17 14:30)
PROC: 30233J1 Transfusion of Nonautologous Serum Albumin into Peripheral Vein, Percutaneous Approach (ICD-10-PCS; 2021-03-18)
DX: D64.9 Anemia, unspecified (principal); K76.6 Portal hypertension; F10.10 Alcohol abuse, uncomplicated; K70.31 Alcoholic cirrhosis of liver with ascites; I10 Essential (primary) hypertension; E78.5 Hyperlipidemia, unspecified; F32.9 Major depressive disorder, single episode, unspecified; K29.50 Unspecified chronic gastritis without bleeding; I86.4 Gastric varices; Z95.820 Peripheral vascular angioplasty status with implants and grafts; F17.200 Nicotine dependence, unspecified, uncomplicated; D72.829 Elevated white blood cell count, unspecified; I73.9 Peripheral vascular disease, unspecified; Z79.82 Long term (current) use of aspirin; Z79.02 Long term (current) use of antithrombotics/antiplatelets; Z79.899 Other long term (current) drug therapy

== ENCOUNTER → 2021-03-25 | Outpatient (CLI) | payer MEDICARE, OTHER ==
[~2021-03-25] MED LIST changes: +FERR1TAB8 PO; +SPIR-10 PO
== END ==
LOC: M WUC 12:03
PROVIDERS: ATTEND Pediatrics
DX: J90 Pleural effusion, not elsewhere classified (principal)

== ENCOUNTER 2021-05-11 03:06 | Emergency (ER) | payer MEDICARE, OTHER ==
[2021-05-11] VITALS (11 sets, daily range): BP systolic 92–130; BP diastolic 56–77
[~2021-05-11] VITALS: Ht 185.4 cm; Wt 65.4 kg
[2021-05-11] MEDS ORDERED: NS 1,000 ML IV ONE (03:15)
[2021-05-11] MEDS ORDERED: ISOVUE-370 76% 100ML VIAL As Ordered ONE (03:25)
[2021-05-11 03:41] LABS: BASO # 0.1 10^3/uL (0.0-0.2); BASO % 0.4 % (0.0-1.0); EOS # 0.1 10^3/uL (0.0-0.5); EOS % 0.3 % (0.0-3.0); HEMATOCRIT 26.2 % (42.0-52.0); HEMOGLOBIN 7.8 g/dl (13.5-17.5); LYMPH # 1.6 10^3/uL (1.5-5.0); LYMPH % 5.9 % (24.0-44.0); MEAN CORPUSCULAR HEMOGLOBIN 28.9 pg (27.0-33.0); MEAN CORPUSCULAR HGB CONC 29.8 g/dl (32.0-36.5); MONO # 2.5 10^3/uL (0.0-0.8); NEUTROPHILS # 22.8 10^3/uL (1.5-8.5); NEUTROPHILS % 82.3 % (36.0-66.0); PLATELET COUNT, AUTOMATED 169 10^3/uL (150-450); WHITE BLOOD COUNT 27.7 10^3/uL (4.0-10.0)
[2021-05-11 03:51] LABS: INR 3.22; PROTHROMBIN TIME 33.2 SECONDS (12.7-14.5)
[2021-05-11 03:52] LABS: PARTIAL THROMBOPLASTIN TIME 60.4 SECONDS (25.9-37.0)
[2021-05-11 04:00] LABS: BILIRUBIN,TOTAL 1.3 MG/DL (0.2-1.0); CK-MB VALUE MASS 3.4 NG/ML (<3.6); GLOMERULAR FILTRATION RATE 35.9 (>49); MB/CK RELATIVE INDEX 3.12 (< OR =4); POTASSIUM SERUM 3.9 MEQ/L (3.5-5.1); TOTAL PROTEIN 6.4 GM/DL (6.4-8.2); TROPONIN I 0.03 NG/ML (< 0.10)
[2021-05-11] MEDS ORDERED: PHYTONADIONE 10MG/ML INJECTION (J3430) SC ONE (04:20)
[2021-05-11 04:33] LABS: RSV AMPLIFICATION NEGATIVE (NEGATIVE)
[2021-05-11] MEDS ORDERED: cefTRIAXone SOD 1 GM in D5W MINI-BAG PLUS 50 ML IV ONE (06:40)
[2021-05-11] MEDS ORDERED: FURO20TA2 PO (06:47)
[2021-05-11] MEDS ORDERED: HOME MED LIST COMPLETE! XX SCH (06:50)
[2021-05-11] MEDS ORDERED: MORPHINE 4 MG/ML 1ML VIAL/SYRINGE (J2270) IV ONE (08:35)
[2021-05-11 09:16] LABS: INR 4.76; PROTHROMBIN TIME 44.7 SECONDS (12.7-14.5)
[2021-05-11 09:17] LABS: HEMATOCRIT 22.6 % (42.0-52.0)
[2021-05-11 09:20] LABS: HEMOGLOBIN 6.8 g/dl (13.5-17.5)
[2021-05-11 11:40] LABS: CALCIUM LEVEL 7.7 MG/DL (8.8-10.2); CREATININE FOR GFR 1.67 MG/DL (0.70-1.30); GLOMERULAR FILTRATION RATE 44.2 (>49)
== END 2021-05-11 11:18 | disposition short-term general hospital (02) ==
LOC: M ED 03:06 → EDBD 03:06 → CANBEDREQ 09:05 → M ED 11:18
DX: K92.2 Gastrointestinal hemorrhage, unspecified (principal); D64.9 Anemia, unspecified; M62.262 Nontraumatic ischemic infarction of muscle, left lower leg; R00.0 Tachycardia, unspecified; I10 Essential (primary) hypertension; K74.60 Unspecified cirrhosis of liver; Z95.1 Presence of aortocoronary bypass graft; M85.862 Other specified disorders of bone density and structure, left lower leg; M85.872 Other specified disorders of bone density and structure, left ankle and foot; R91.8 Other nonspecific abnormal finding of lung field; M50.321 Other cervical disc degeneration at C4-C5 level; I74.5 Embolism and thrombosis of iliac artery; T82.898A Other specified complication of vascular prosthetic devices, implants and grafts, initial encounter; Z79.899 Other long term (current) drug therapy
CPT/HCPCS: 36430; 70450; 71045; 71275; 72125; 73590; 73610; 74177; 80047; 80048; 80053; 82550; 82553; 83605; 83690; 84484; 85014; 85018; 85025; 85610; 85730; 86850; 86900; 86901; 86920; 87040; 87631; 93005; 96361; 96365; 99291; 99292; J0696; J3430; P9016; Q9967